=== PATIENT | female | born 1940 | race Asian ===

== ENCOUNTER → 2017-06-13 | Outpatient (CLI) | payer MEDICARE, OTHER ==
[2017-06-13 08:35] LABS: Basophils # (auto) 0 uL; Basophils % (auto) 0.9 % (0.0-2.0); Eosinophils # (auto) 0.1 uL; Eosinophils % (auto) 2.2 % (0.0-7.0); Hemoglobin 15.2 g/dL (12.2-16.2); Lymphocytes # (auto) 1.9 uL; Lymphocytes % (auto) 43.8 % (10.0-50.0); Mean Corpuscular Hemoglobin 30.1 pg (28.0-32.0); Mean Corpuscular Volume 91.2 fL (80.0-100.0); Monocytes # (auto) 0.3 uL; Monocytes % (auto) 7.4 % (0.0-12.0); Neutrophils # (auto) 1.9 uL; Neutrophils % (auto) 45.7 % (37.0-80.0); Nucleated Red Blood Cells % 0.1 %; Platelet Count (auto) 221 10^3/uL (140-450); Red Blood Cells 5.05 10^6/uL (4.0-5.20); White Blood Cell 4.2 10^3/uL (4.4-10.8)
[2017-06-13 12:43] LABS: Albumin 3.8 g/dL (3.4-5.0); BUN/Creatinine Ratio 33.3; Bilirubin, Total 0.6 mg/dL (0.2-1.0); CRP High Sensitivity 0.21 mg/dL (< 0.3); Calcium 8.6 mg/dL (8.5-10.1); Potassium 4.3 mmol/L (3.5-5.1); Total Protein 7.8 g/dL (6.4-8.2)
== END | disposition home or self-care (01) ==
LOC: LAB 07:28
PROVIDERS: ATTEND Internal Medicine
DX: I10 Essential (primary) hypertension (principal); E11.9 Type 2 diabetes mellitus without complications; M19.90 Unspecified osteoarthritis, unspecified site
CPT/HCPCS: 36415; 80053; 83036; 85025; 86038; 86141; 86200; 86431

== ENCOUNTER → 2017-08-16 | Outpatient (CLI) | payer MEDICARE, OTHER ==
[2017-08-16 10:56] LABS: Basophils # (auto) 0 uL; Basophils % (auto) 0.5 % (0.0-2.0); Eosinophils # (auto) 0.1 uL; Eosinophils % (auto) 1.2 % (0.0-7.0); Hematocrit 46.3 % (36.0-46.0); Hemoglobin 14.9 g/dL (12.2-16.2); Lymphocytes % (auto) 42.2 % (10.0-50.0); Mean Corpuscular Hgb Conc. 32.1 g/dL (32.0-36.0); Mean Corpuscular Volume 90.4 fL (80.0-100.0); Monocytes # (auto) 0.4 uL; Monocytes % (auto) 9.1 % (0.0-12.0); Neutrophils # (auto) 2.2 uL; Nucleated Red Blood Cells % 0.1 %; Platelet Count (auto) 231 10^3/uL (140-450); Red Blood Cells 5.12 10^6/uL (4.0-5.20); Red Cell Distribution Width 15.3 % (11.8-14.3); White Blood Cell 4.7 10^3/uL (4.4-10.8)
[2017-08-16 11:14] LABS: Albumin 3.7 g/dL (3.4-5.0); Calcium 8.6 mg/dL (8.5-10.1); Potassium 4.3 mmol/L (3.5-5.1)
[2017-08-16 11:19] LABS: Bilirubin, Total 0.3 mg/dL (0.2-1.0); Total Protein 7.8 g/dL (6.4-8.2)
== END | disposition home or self-care (01) ==
LOC: LAB 09:58
PROVIDERS: ATTEND Internal Medicine
DX: I10 Essential (primary) hypertension (principal); E11.9 Type 2 diabetes mellitus without complications; M06.9 Rheumatoid arthritis, unspecified; E78.00 Pure hypercholesterolemia, unspecified
CPT/HCPCS: 36415; 80053; 85025; 85652

== ENCOUNTER → 2017-11-05 | Outpatient (CLI) | payer MEDICARE, OTHER, MEDICAID ==
[2017-11-05 12:28] LABS: Urine Bacteria NONE SEEN /hpf (None Seen); Urine Blood TRACE /uL (Negative); Urine WBC 1 /hpf (0 - 5)
[2017-11-05 12:34] LABS: Basophils # (auto) 0 uL; Basophils % (auto) 0.4 % (0.0-2.0); Eosinophils # (auto) 0.1 uL; Eosinophils % (auto) 1.6 % (0.0-7.0); Hematocrit 41.7 % (36.0-46.0); Hemoglobin 13.8 g/dL (12.2-16.2); Lymphocytes # (auto) 1.5 uL; Lymphocytes % (auto) 36.9 % (10.0-50.0); Mean Corpuscular Hemoglobin 30.1 pg (28.0-32.0); Mean Corpuscular Hgb Conc. 33.1 g/dL (32.0-36.0); Mean Corpuscular Volume 90.9 fL (80.0-100.0); Monocytes # (auto) 0.4 uL; Monocytes % (auto) 9.7 % (0.0-12.0); Neutrophils % (auto) 51.4 % (37.0-80.0); Nucleated Red Blood Cells % 0.2 %; Platelet Count (auto) 230 10^3/uL (140-450); Red Blood Cells 4.59 10^6/uL (4.0-5.20); Red Cell Distribution Width 16.9 % (11.8-14.3)
[2017-11-05 13:02] LABS: Albumin 3.6 g/dL (3.4-5.0); BUN/Creatinine Ratio 20.2; Bilirubin, Total 0.7 mg/dL (0.2-1.0); CRP High Sensitivity 0.27 mg/dL (< 0.3); Calcium 8.6 mg/dL (8.5-10.1); Potassium 4.4 mmol/L (3.5-5.1); Total Protein 7.3 g/dL (6.4-8.2)
== END | disposition home or self-care (01) ==
LOC: LAB 11:28
PROVIDERS: ATTEND Internal Medicine
DX: E11.9 Type 2 diabetes mellitus without complications (principal); M06.9 Rheumatoid arthritis, unspecified; I10 Essential (primary) hypertension
CPT/HCPCS: 36415; 80053; 81001; 82043; 83036; 84439; 84443; 85025; 86141

== ENCOUNTER → 2018-01-17 | Outpatient (CLI) | payer MEDICARE, OTHER, MEDICAID ==
[2018-01-17 14:14] LABS: Basophils # (auto) 0 uL; Basophils % (auto) 0.4 % (0.0-2.0); Eosinophils # (auto) 0.1 uL; Eosinophils % (auto) 1.8 % (0.0-7.0); Hematocrit 42.9 % (36.0-46.0); Hemoglobin 14.1 g/dL (12.2-16.2); Lymphocytes # (auto) 1.8 uL; Lymphocytes % (auto) 38.7 % (10.0-50.0); Mean Corpuscular Hemoglobin 30.4 pg (28.0-32.0); Mean Corpuscular Hgb Conc. 32.7 g/dL (32.0-36.0); Monocytes # (auto) 0.5 uL; Monocytes % (auto) 10.1 % (0.0-12.0); Neutrophils # (auto) 2.3 uL; Platelet Count (auto) 228 10^3/uL (140-450); Red Blood Cells 4.62 10^6/uL (4.0-5.20); Red Cell Distribution Width 16.3 % (11.8-14.3); White Blood Cell 4.7 10^3/uL (4.4-10.8)
[2018-01-17 14:32] LABS: Albumin 3.8 g/dL (3.4-5.0); Calcium 9.2 mg/dL (8.5-10.1); Potassium 4.4 mmol/L (3.5-5.1)
[2018-01-17 14:37] LABS: BUN/Creatinine Ratio 25.7; Bilirubin, Total 0.4 mg/dL (0.2-1.0); Total Protein 7.6 g/dL (6.4-8.2)
== END | disposition home or self-care (01) ==
LOC: LAB 13:40
PROVIDERS: ATTEND Internal Medicine
DX: M06.9 Rheumatoid arthritis, unspecified (principal); K12.1 Other forms of stomatitis
CPT/HCPCS: 36415; 80053; 85025

== ENCOUNTER → 2018-02-06 | Outpatient (CLI) | payer MEDICARE, OTHER ==
[2018-02-06 12:03] LABS: Basophils # (auto) 0 uL; Basophils % (auto) 0.6 % (0.0-2.0); Eosinophils # (auto) 0 uL; Hematocrit 46.7 % (36.0-46.0); Hemoglobin 15.1 g/dL (12.2-16.2); Lymphocytes # (auto) 1.8 uL; Lymphocytes % (auto) 41.2 % (10.0-50.0); Mean Corpuscular Hemoglobin 30.2 pg (28.0-32.0); Mean Corpuscular Hgb Conc. 32.4 g/dL (32.0-36.0); Mean Corpuscular Volume 93.1 fL (80.0-100.0); Monocytes # (auto) 0.3 uL; Monocytes % (auto) 6.7 % (0.0-12.0); Neutrophils # (auto) 2.3 uL; Neutrophils % (auto) 50.5 % (37.0-80.0); Nucleated Red Blood Cells % 0.1 %; Platelet Count (auto) 233 10^3/uL (140-450); Red Blood Cells 5.01 10^6/uL (4.0-5.20); Red Cell Distribution Width 15.5 % (11.8-14.3); White Blood Cell 4.5 10^3/uL (4.4-10.8)
[2018-02-06 12:27] LABS: Albumin 3.6 g/dL (3.4-5.0)
== END | disposition home or self-care (01) ==
LOC: LAB 10:58
PROVIDERS: ATTEND Internal Medicine Rheumatology
DX: M06.9 Rheumatoid arthritis, unspecified (principal)
CPT/HCPCS: 36415; 82040; 82565; 84450; 84460; 85025

== ENCOUNTER → 2018-06-04 | Outpatient (CLI) | payer MEDICARE, OTHER ==
[2018-06-04 10:03] LABS: Urine Bacteria NONE SEEN /hpf (None Seen); Urine Blood TRACE /uL (Negative); Urine Specific Gravity 1.017 (1.001-1.035); Urine WBC 1 /hpf (0 - 5)
[2018-06-04 10:04] LABS: Basophils # (auto) 0 uL; Basophils % (auto) 0.7 % (0.0-2.0); Eosinophils # (auto) 0.1 uL; Hematocrit 46.3 % (36.0-46.0); Hemoglobin 15.2 g/dL (12.2-16.2); Lymphocytes # (auto) 1.5 uL; Lymphocytes % (auto) 39.8 % (10.0-50.0); Mean Corpuscular Hemoglobin 30.7 pg (28.0-32.0); Mean Corpuscular Hgb Conc. 32.8 g/dL (32.0-36.0); Mean Corpuscular Volume 93.6 fL (80.0-100.0); Monocytes # (auto) 0.3 uL; Neutrophils # (auto) 1.8 uL; Neutrophils % (auto) 49.5 % (37.0-80.0); Platelet Count (auto) 232 10^3/uL (140-450); Red Blood Cells 4.94 10^6/uL (4.0-5.20); Red Cell Distribution Width 17.2 % (11.8-14.3); White Blood Cell 3.7 10^3/uL (4.4-10.8)
[2018-06-04 10:27] LABS: Calcium 9.2 mg/dL (8.5-10.1); Potassium 4.4 mmol/L (3.5-5.1)
[2018-06-04 10:32] LABS: BUN/Creatinine Ratio 18.7; Bilirubin, Total 0.7 mg/dL (0.2-1.0); CRP High Sensitivity 0.26 mg/dL (< 0.3); Total Protein 8.1 g/dL (6.4-8.2)
[2018-06-04 14:03] LABS: Free T4 (Free Thyroxine) 1.28 ng/dL (0.89-1.76)
== END | disposition home or self-care (01) ==
LOC: LAB 09:20
PROVIDERS: ATTEND Internal Medicine
DX: E11.9 Type 2 diabetes mellitus without complications (principal); M06.9 Rheumatoid arthritis, unspecified; I25.10 Atherosclerotic heart disease of native coronary artery without angina pectoris
CPT/HCPCS: 36415; 80053; 80061; 81001; 82043; 82607; 83036; 84439; 84443; 85025; 85652; 86141

== ENCOUNTER → 2018-09-04 | Outpatient (CLI) | payer MEDICARE, OTHER | END | disposition home or self-care (01) | LOC: XY 09:37 | PROVIDERS: ATTEND Internal Medicine | DX: I27.20 Pulmonary hypertension, unspecified (principal); I51.7 Cardiomegaly | CPT/HCPCS: 78582; A9540; A9558 ==

== ENCOUNTER → 2018-09-04 | Outpatient (CLI) | payer MEDICARE, OTHER ==
[2018-09-04 09:52] LABS: Basophils # (auto) 0 uL; Basophils % (auto) 0.6 % (0.0-2.0); Eosinophils # (auto) 0.1 uL; Eosinophils % (auto) 2.9 % (0.0-7.0); Hematocrit 43.3 % (36.0-46.0); Hemoglobin 14.1 g/dL (12.2-16.2); Lymphocytes # (auto) 1.2 uL; Lymphocytes % (auto) 32.5 % (10.0-50.0); Mean Corpuscular Hemoglobin 30.7 pg (28.0-32.0); Mean Corpuscular Hgb Conc. 32.6 g/dL (32.0-36.0); Mean Corpuscular Volume 94.1 fL (80.0-100.0); Monocytes # (auto) 0.3 uL; Monocytes % (auto) 7.7 % (0.0-12.0); Neutrophils # (auto) 2.1 uL; Neutrophils % (auto) 56.3 % (37.0-80.0); Platelet Count (auto) 222 10^3/uL (140-450); Red Cell Distribution Width 17.2 % (11.8-14.3); White Blood Cell 3.7 10^3/uL (4.4-10.8)
[2018-09-04 10:07] LABS: Albumin 3.8 g/dL (3.4-5.0); BUN/Creatinine Ratio 29.3; Calcium 8.6 mg/dL (8.5-10.1); Potassium 4.3 mmol/L (3.5-5.1)
[2018-09-04 10:09] LABS: Bilirubin, Total 0.6 mg/dL (0.2-1.0); Total Protein 7.6 g/dL (6.4-8.2)
== END | disposition home or self-care (01) ==
LOC: LAB 09:16
PROVIDERS: ATTEND Internal Medicine
DX: E11.9 Type 2 diabetes mellitus without complications (principal); I26.99 Other pulmonary embolism without acute cor pulmonale
CPT/HCPCS: 36415; 80053; 83036; 85025; 85652

== ENCOUNTER → 2018-12-18 | Outpatient (CLI) | payer MEDICARE, OTHER, MEDICAID ==
[2018-12-18 13:45] LABS: Basophils # (auto) 0.1 uL; Basophils % (auto) 1.5 % (0.0-2.0); Eosinophils # (auto) 0.1 uL; Eosinophils % (auto) 1.2 % (0.0-7.0); Hemoglobin 13.4 g/dL (12.2-16.2); Lymphocytes # (auto) 1.6 uL; Lymphocytes % (auto) 32.1 % (10.0-50.0); Mean Corpuscular Hemoglobin 30.7 pg (28.0-32.0); Mean Corpuscular Hgb Conc. 32.6 g/dL (32.0-36.0); Mean Corpuscular Volume 93.9 fL (80.0-100.0); Monocytes # (auto) 0.4 uL; Neutrophils # (auto) 2.9 uL; Neutrophils % (auto) 57.2 % (37.0-80.0); Nucleated Red Blood Cells % 0.1 %; Platelet Count (auto) 229 10^3/uL (140-450); Red Blood Cells 4.36 10^6/uL (4.0-5.20); Red Cell Distribution Width 16.2 % (11.8-14.3); White Blood Cell 5.1 10^3/uL (4.4-10.8)
[2018-12-18 14:32] LABS: Albumin 3.8 g/dL (3.4-5.0); Calcium 8.7 mg/dL (8.5-10.1); Potassium 4.5 mmol/L (3.5-5.1)
[2018-12-18 14:36] LABS: Bilirubin, Total 0.5 mg/dL (0.2-1.0); Total Protein 7.5 g/dL (6.4-8.2)
== END | disposition home or self-care (01) ==
LOC: LAB 13:29
PROVIDERS: ATTEND Internal Medicine
DX: M06.9 Rheumatoid arthritis, unspecified (principal); E11.9 Type 2 diabetes mellitus without complications; I10 Essential (primary) hypertension
CPT/HCPCS: 36415; 80053; 83036; 85025; 85652

== ENCOUNTER → 2019-01-14 | Outpatient (CLI) | payer MEDICARE, OTHER ==
[2019-01-14 15:07] LABS: Basophils # (auto) 0 uL; Basophils % (auto) 0.4 % (0.0-2.0); Eosinophils # (auto) 0.1 uL; Eosinophils % (auto) 1.6 % (0.0-7.0); Hematocrit 41.3 % (36.0-46.0); Hemoglobin 13.5 g/dL (12.2-16.2); Lymphocytes # (auto) 1.5 uL; Lymphocytes % (auto) 27.1 % (10.0-50.0); Mean Corpuscular Hemoglobin 31.1 pg (28.0-32.0); Mean Corpuscular Hgb Conc. 32.6 g/dL (32.0-36.0); Mean Corpuscular Volume 95.5 fL (80.0-100.0); Monocytes # (auto) 0.4 uL; Monocytes % (auto) 7.4 % (0.0-12.0); Neutrophils # (auto) 3.6 uL; Neutrophils % (auto) 63.5 % (37.0-80.0); Platelet Count (auto) 218 10^3/uL (140-450); Red Blood Cells 4.33 10^6/uL (4.0-5.20); Red Cell Distribution Width 16.6 % (11.8-14.3); White Blood Cell 5.7 10^3/uL (4.4-10.8)
[2019-01-14 16:07] LABS: Albumin 3.8 g/dL (3.4-5.0); Calcium 8.5 mg/dL (8.5-10.1); Potassium 4.2 mmol/L (3.5-5.1)
[2019-01-14 16:10] LABS: BUN/Creatinine Ratio 24.1; Bilirubin, Total 0.5 mg/dL (0.2-1.0); Total Protein 7.5 g/dL (6.4-8.2)
== END | disposition home or self-care (01) ==
LOC: LAB 14:46
PROVIDERS: ATTEND Internal Medicine
DX: I10 Essential (primary) hypertension (principal); M06.9 Rheumatoid arthritis, unspecified; E11.9 Type 2 diabetes mellitus without complications; Z79.899 Other long term (current) drug therapy
CPT/HCPCS: 36415; 80053; 83036; 85025; 87086

== ENCOUNTER → 2019-05-26 | Outpatient (CLI) | payer MEDICARE, OTHER ==
[2019-05-26 12:49] LABS: Basophils # (auto) 0 10 ^3/uL (0-0.2); Basophils % (auto) 0.3 % (0.0-2.0); Eosinophils # (auto) 0.1 10 ^3/uL (0-0.8); Eosinophils % (auto) 1.5 % (0.0-7.0); Hemoglobin 14.6 g/dL (12.2-16.2); Lymphocytes # (auto) 1.7 10 ^3/uL (0.4-5.4); Lymphocytes % (auto) 40.4 % (10.0-50.0); Mean Corpuscular Hemoglobin 29.7 pg (28.0-32.0); Mean Corpuscular Hgb Conc. 33.3 g/dL (32.0-36.0); Mean Corpuscular Volume 89.2 fL (80.0-100.0); Monocytes # (auto) 0.3 10 ^3/uL (0-1.3); Monocytes % (auto) 7.3 % (0.0-12.0); Neutrophils # (auto) 2.2 10 ^3/uL (1.6-8.6); Neutrophils % (auto) 50.5 % (37.0-80.0); Nucleated Red Blood Cells % 0.1 %; Platelet Count (auto) 234 10^3/uL (140-450); Red Blood Cells 4.94 10^6/uL (4.0-5.20); Red Cell Distribution Width 16.1 % (11.8-14.3); White Blood Cell 4.3 10^3/uL (4.4-10.8)
[2019-05-26 12:55] LABS: Urine Bacteria FEW /hpf (None Seen); Urine Blood TRACE /uL (Negative); Urine Specific Gravity 1.011 (1.001-1.035); Urine WBC 1 /hpf (0 - 5)
[2019-05-26 13:22] LABS: Potassium 4.5 mmol/L (3.5-5.1)
[2019-05-26 13:30] LABS: Albumin 3.9 g/dL (3.4-5.0); BUN/Creatinine Ratio 16.9; Bilirubin, Total 0.6 mg/dL (0.2-1.0); CRP High Sensitivity 0.24 mg/dL (< 0.3); Calcium 9.4 mg/dL (8.5-10.1); Total Protein 8.2 g/dL (6.4-8.2)
[2019-05-26 13:32] LABS: Free T4 (Free Thyroxine) 1.35 ng/dL (0.89-1.76)
== END | disposition home or self-care (01) ==
LOC: LAB 10:46
PROVIDERS: ATTEND Internal Medicine
DX: Z51.81 Encounter for therapeutic drug level monitoring (principal); I25.10 Atherosclerotic heart disease of native coronary artery without angina pectoris; I10 Essential (primary) hypertension; E11.9 Type 2 diabetes mellitus without complications
CPT/HCPCS: 36415; 80053; 80061; 81001; 82043; 82607; 83036; 84439; 84443; 85025; 85652; 86141

== ENCOUNTER → 2019-09-23 | Outpatient (CLI) | payer MEDICARE, OTHER ==
[2019-09-23 11:28] LABS: Basophils # (auto) 0 10 ^3/uL (0-0.2); Basophils % (auto) 0.5 % (0.0-2.0); Eosinophils # (auto) 0.1 10 ^3/uL (0-0.8); Eosinophils % (auto) 1.8 % (0.0-7.0); Hematocrit 42.9 % (36.0-46.0); Lymphocytes # (auto) 1.3 10 ^3/uL (0.4-5.4); Lymphocytes % (auto) 28.2 % (10.0-50.0); Mean Corpuscular Hgb Conc. 32.5 g/dL (32.0-36.0); Mean Corpuscular Volume 95.3 fL (80.0-100.0); Monocytes # (auto) 0.3 10 ^3/uL (0-1.3); Monocytes % (auto) 7.1 % (0.0-12.0); Neutrophils # (auto) 2.8 10 ^3/uL (1.6-8.6); Neutrophils % (auto) 62.4 % (37.0-80.0); Platelet Count (auto) 213 10^3/uL (140-450); Red Cell Distribution Width 17.1 % (11.8-14.3); White Blood Cell 4.4 10^3/uL (4.4-10.8)
[2019-09-23 11:50] LABS: Albumin 3.7 g/dL (3.4-5.0); Calcium 9.1 mg/dL (8.5-10.1); Potassium 4.2 mmol/L (3.5-5.1)
[2019-09-23 11:55] LABS: BUN/Creatinine Ratio 21.6; Bilirubin, Total 0.5 mg/dL (0.2-1.0); Total Protein 7.3 g/dL (6.4-8.2)
== END | disposition home or self-care (01) ==
LOC: LAB 11:06
PROVIDERS: ATTEND Internal Medicine
DX: E11.9 Type 2 diabetes mellitus without complications (principal); M06.9 Rheumatoid arthritis, unspecified
CPT/HCPCS: 36415; 80053; 83036; 85025; 85652

== ENCOUNTER → 2019-12-30 | Outpatient (CLI) | payer MEDICARE, OTHER, MEDICAID ==
[2019-12-30 11:27] LABS: Basophils # (auto) 0 10 ^3/uL (0-0.2); Basophils % (auto) 0.4 % (0.0-2.0); Eosinophils # (auto) 0.1 10 ^3/uL (0-0.8); Eosinophils % (auto) 1.1 % (0.0-7.0); Hematocrit 43.4 % (36.0-46.0); Lymphocytes # (auto) 1.8 10 ^3/uL (0.4-5.4); Mean Corpuscular Hemoglobin 30.3 pg (28.0-32.0); Mean Corpuscular Hgb Conc. 32.4 g/dL (32.0-36.0); Mean Corpuscular Volume 93.5 fL (80.0-100.0); Monocytes # (auto) 0.6 10 ^3/uL (0-1.3); Monocytes % (auto) 9.6 % (0.0-12.0); Neutrophils # (auto) 3.4 10 ^3/uL (1.6-8.6); Neutrophils % (auto) 57.9 % (37.0-80.0); Nucleated Red Blood Cells % 0.1 %; Platelet Count (auto) 253 10^3/uL (140-450); Red Blood Cells 4.64 10^6/uL (4.0-5.20); Red Cell Distribution Width 16.3 % (11.8-14.3); White Blood Cell 5.9 10^3/uL (4.4-10.8)
[2019-12-30 12:04] LABS: Albumin 3.7 g/dL (3.4-5.0); Calcium 8.8 mg/dL (8.5-10.1); Potassium 4.3 mmol/L (3.5-5.1)
[2019-12-30 12:07] LABS: BUN/Creatinine Ratio 28.8; Bilirubin, Total 0.4 mg/dL (0.2-1.0); CRP High Sensitivity 0.16 mg/dL (< 0.3); Total Protein 7.2 g/dL (6.4-8.2)
== END | disposition home or self-care (01) ==
LOC: LAB 11:06
PROVIDERS: ATTEND Internal Medicine
DX: E11.9 Type 2 diabetes mellitus without complications (principal); M06.9 Rheumatoid arthritis, unspecified
CPT/HCPCS: 36415; 80053; 83036; 85025; 85652; 86141

== ENCOUNTER 2020-02-15 09:40 | Emergency (ER) | payer MEDICARE, OTHER ==
[~2020-02-15] VITALS: Ht 157.5 cm; Wt 68.0 kg
[2020-02-15] MEDS ORDERED: ACETAMINOPHEN 650 mg PER 20.3 mL UD PO ONE (10:00)
[2020-02-15 12:51] VITALS: BP 124/58
== END 2020-02-15 14:14 | disposition home or self-care (01) ==
LOC: ER 09:40
DX: S09.90XA Unspecified injury of head, initial encounter (principal); T14.8XXA Other injury of unspecified body region, initial encounter; J18.9 Pneumonia, unspecified organism; E11.9 Type 2 diabetes mellitus without complications; I10 Essential (primary) hypertension; X58.XXXA Exposure to other specified factors, initial encounter; Y93.89 Activity, other specified; Y92.89 Other specified places as the place of occurrence of the external cause; Y99.8 Other external cause status
CPT/HCPCS: 70450; 70486; 71046; 72170

== ENCOUNTER 2020-02-17 10:55 | Inpatient (IN) | payer MEDICARE, OTHER ==
[~2020-02-17] VITALS: Ht 157.5 cm; Wt 70.4 kg
[2020-02-17] MEDS ORDERED: ENOXAPARIN SOD 100 MG/1 ML SYRINGE SC ONE (11:30)
[2020-02-17] MEDS ORDERED: methylPREDNISolone SOD SUCC 125 MG/2 ML VL IV ONE (11:30)
[2020-02-17] MEDS ORDERED: AZITHROMYCIN 500MG/ 250ML 250 ML IV ONE (11:30)
[2020-02-17 12:03] LABS: Basophils # (auto) 0 10 ^3/uL (0-0.2); Basophils % (auto) 0.1 % (0.0-2.0); Eosinophils # (auto) 0 10 ^3/uL (0-0.8); Hematocrit 44.9 % (36.0-46.0); Hemoglobin 14.8 g/dL (12.2-16.2); Lymphocytes # (auto) 0.5 10 ^3/uL (0.4-5.4); Lymphocytes % (auto) 10.3 % (10.0-50.0); Mean Corpuscular Hemoglobin 30.2 pg (28.0-32.0); Mean Corpuscular Volume 91.6 fL (80.0-100.0); Monocytes # (auto) 0.5 10 ^3/uL (0-1.3); Monocytes % (auto) 11.3 % (0.0-12.0); Neutrophils # (auto) 3.5 10 ^3/uL (1.6-8.6); Neutrophils % (auto) 78.3 % (37.0-80.0); Nucleated Red Blood Cells % 0.5 %; Platelet Count (auto) 262 10^3/uL (140-450); Red Cell Distribution Width 16.8 % (11.8-14.3); White Blood Cell 4.5 10^3/uL (4.4-10.8)
[2020-02-17 12:25] LABS: Anion Gap 13 (5-15); Blood Urea Nitrogen 42 mg/dL (7-18); Calcium 8.7 mg/dL (8.5-10.1); Carbon Dioxide 21 mmol/L (21-32); Chloride 96 mmol/L (98-107); Glucose 107 mg/dL (74-106); Potassium 4.4 mmol/L (3.5-5.1); Sodium 130 mmol/L (136-145)
[2020-02-17 12:26] LABS: Lactic Acid w/Reflex 2.1 mmol/L (0.4-2.0)
[2020-02-17 12:35] LABS: Alanine Aminotransferase 32 U/L (13-56); Alkaline Phosphatase 62 U/L (45-117); Aspartate Aminotransferase 73 U/L (15-37); BUN/Creatinine Ratio 30.7; Bilirubin, Total 0.5 mg/dL (0.2-1.0); GFR African American 48 mL/min; GFR Non-African American 40 mL/min; Lactate Dehydrogenase 638 U/L (84-246); Total Protein 7.8 g/dL (6.4-8.2)
[2020-02-17] MEDS ORDERED: DEXTROSE (50%) 50ML SYRG IV PRN (13:00)
[2020-02-17] MEDS ORDERED: MORPHINE SULF INJ 2 MG/ML SYRINGE 1ML IV PRN (13:00)
[2020-02-17] MEDS ORDERED: SODIUM CHLORIDE 0.9% 1,000 ML IV SCH (13:00)
[2020-02-17] MEDS ORDERED: ACETAMINOPHEN 500 MG TAB PO PRN (13:00)
[2020-02-17] MEDS ORDERED: NITROGLYCERIN 0.4 MG SL TAB SL PRN (13:00)
[2020-02-17] MEDS: ALBUTEROL SULF HFA 90MCG INH 200DOSE IN SCH ×2 (13:30→22:00)
[2020-02-17] MEDS ORDERED: CLIN300C8 PO (14:17)
[2020-02-17] MEDS ORDERED: LEVO-28 PO (14:17)
[2020-02-17] MEDS ORDERED: ASPI81TA92 PO (14:17)
[2020-02-17] MEDS ORDERED: ZINC220C8 PO (14:17)
[2020-02-17] MEDS ORDERED: METO-169 PO (14:17)
[2020-02-17] MEDS ORDERED: METH2.5T PO (14:17)
[2020-02-17] MEDS ORDERED: METF-370 PO (14:17)
[2020-02-17] MEDS ORDERED: SODIUM CHLORIDE 0.9% 1,000 ML IV ONE (17:00)
[2020-02-17] MEDS: ACCU-CHEK COMFORT CURVE STRIP VI SCH ×2 (17:27→22:05)
[2020-02-17] MEDS: InsuLIN REG 1unit/0.01ml Soln (100units/ml) SC SCH ×2 (17:28→22:28)
[2020-02-17 21:27] LABS: Urine Bacteria MANY /hpf (None Seen); Urine Blood Negative /uL (Negative); Urine Hyaline Cast FEW /lpf (0 - 2); Urine Mucus FEW (None Seen); Urine WBC 2 /hpf (0 - 5)
[2020-02-17] MEDS: BUDESONIDE (INHALATION) 180 MCG IH IN SCH (22:00)
[2020-02-17] MEDS: DOXYCYCLINE 100MG/250ML 250 ML IV SCH (22:05)
[2020-02-18 02:25] VITALS: BP 99/49
[2020-02-18] MEDS: ACCU-CHEK COMFORT CURVE STRIP VI SCH ×4 (06:46→22:00)
[2020-02-18] MEDS: InsuLIN REG 1unit/0.01ml Soln (100units/ml) SC SCH ×4 (06:46→22:00)
[2020-02-18 07:37] LABS: Basophils # (auto) 0 10 ^3/uL (0-0.2); Basophils % (auto) 0.1 % (0.0-2.0); Eosinophils # (auto) 0 10 ^3/uL (0-0.8); Hematocrit 45.3 % (36.0-46.0); Hemoglobin 14.9 g/dL (12.2-16.2); Lymphocytes # (auto) 0.5 10 ^3/uL (0.4-5.4); Lymphocytes % (auto) 11.1 % (10.0-50.0); Mean Corpuscular Hemoglobin 29.9 pg (28.0-32.0); Mean Corpuscular Hgb Conc. 32.9 g/dL (32.0-36.0); Mean Corpuscular Volume 90.7 fL (80.0-100.0); Monocytes # (auto) 0.4 10 ^3/uL (0-1.3); Monocytes % (auto) 8.8 % (0.0-12.0); Neutrophils # (auto) 3.9 10 ^3/uL (1.6-8.6); Nucleated Red Blood Cells % 0.1 %; Platelet Count (auto) 261 10^3/uL (140-450); Red Blood Cells 4.99 10^6/uL (4.0-5.20); Red Cell Distribution Width 16.2 % (11.8-14.3); White Blood Cell 4.9 10^3/uL (4.4-10.8)
[2020-02-18 07:48] LABS: Albumin 2.8 g/dL (3.4-5.0); BUN/Creatinine Ratio 40.8; Calcium 8.8 mg/dL (8.5-10.1); Potassium 4.1 mmol/L (3.5-5.1)
[2020-02-18 07:50] LABS: Bilirubin, Total 0.4 mg/dL (0.2-1.0); Total Protein 7.4 g/dL (6.4-8.2)
[2020-02-18] MEDS ORDERED: REMDESIVIR PER PHARMACY IV SCH (08:15)
[2020-02-18] MEDS: BUDESONIDE (INHALATION) 180 MCG IH IN SCH ×2 (08:23→22:00)
[2020-02-18] MEDS: ALBUTEROL SULF HFA 90MCG INH 200DOSE IN SCH ×3 (08:24→22:00)
[2020-02-18] MEDS: DexAMETHasone SOD PHOS 10MG/1ML VIAL INJ IV SCH (09:41)
[2020-02-18] MEDS: DOXYCYCLINE 100MG/250ML 250 ML IV SCH ×2 (09:41→22:30)
[2020-02-18] MEDS: CHOLECALCIFEROL (VITD3) 2,000 UNIT CAP PO SCH (09:42)
[2020-02-18] MEDS: ASCORBIC ACID 1,000 MG TAB PO SCH (09:42)
[2020-02-18] MEDS: ZINC SULFATE 220mg CAP or TAB PO SCH (09:42)
[2020-02-18] MEDS ORDERED: ENOXAPARIN SOD 30 MG/0.3 ML SYRINGE SC SCH (10:00)
[2020-02-18 16:40] VITALS: BP 95/53
[2020-02-18 16:55] VITALS: BP 123/65
[2020-02-18] MEDS ORDERED: REMDESIVIR 200 MG in NS 210ml LOADING DOSE ADULT IV ONE (17:00)
[2020-02-18 18:25] VITALS: BP 115/56
[2020-02-18] MEDS: ENOXAPARIN SOD 60 MG/0.6 ML SYRINGE SC SCH (22:30)
[2020-02-19] MEDS: ALBUTEROL SULF HFA 90MCG INH 200DOSE IN SCH ×3 (06:00→22:00)
[2020-02-19] MEDS: InsuLIN REG 1unit/0.01ml Soln (100units/ml) SC SCH ×4 (07:00→21:27)
[2020-02-19] MEDS: ACCU-CHEK COMFORT CURVE STRIP VI SCH ×4 (07:00→21:26)
[2020-02-19] MEDS: BUDESONIDE (INHALATION) 180 MCG IH IN SCH ×2 (07:31→22:00)
[2020-02-19] MEDS: DexAMETHasone SOD PHOS 10MG/1ML VIAL INJ IV SCH (08:48)
[2020-02-19] MEDS: ZINC SULFATE 220mg CAP or TAB PO SCH (08:48)
[2020-02-19] MEDS: ASCORBIC ACID 1,000 MG TAB PO SCH (08:48)
[2020-02-19] MEDS: DOXYCYCLINE 100MG/250ML 250 ML IV SCH ×2 (08:48→21:26)
[2020-02-19] MEDS: ENOXAPARIN SOD 60 MG/0.6 ML SYRINGE SC SCH ×2 (08:49→21:26)
[2020-02-19] MEDS: CHOLECALCIFEROL (VITD3) 2,000 UNIT CAP PO SCH (08:49)
[2020-02-19] MEDS: ENSURE CLEAR Mixed Berry 8oz Carton PO SCH ×2 (11:49→18:00)
--- NOTE | 2020-02-19 16:11 | NUR ---
Nutrition Assessment Notes Please refer to link for full assessment notes. Est Energy needs: 3405-9934 kcals (20-23 kcal/kgBW) Est Protein needs: 63-69 gms/day (1.0-1.1 gm/kgBW) Will continue to monitor and reassess prn. Addendum: 02/19/20 at [address] Amended: Links added.
[2020-02-19] MEDS: REMDESIVIR 100mg in NS 230ml DAILYx4DAYS (NO VENT) IV SCH (16:43)
[2020-02-19] MEDS: SODIUM CHLORIDE 0.9% 1,000 ML IV SCH (20:31)
[2020-02-20 06:42] LABS: Basophils # (auto) 0 10 ^3/uL (0-0.2); Eosinophils # (auto) 0 10 ^3/uL (0-0.8); Hematocrit 45.3 % (36.0-46.0); Hemoglobin 14.8 g/dL (12.2-16.2); Lymphocytes # (auto) 0.5 10 ^3/uL (0.4-5.4); Lymphocytes % (auto) 5.4 % (10.0-50.0); Mean Corpuscular Hemoglobin 29.8 pg (28.0-32.0); Mean Corpuscular Hgb Conc. 32.6 g/dL (32.0-36.0); Mean Corpuscular Volume 91.3 fL (80.0-100.0); Monocytes # (auto) 0.6 10 ^3/uL (0-1.3); Monocytes % (auto) 6.8 % (0.0-12.0); Neutrophils # (auto) 7.7 10 ^3/uL (1.6-8.6); Neutrophils % (auto) 87.8 % (37.0-80.0); Nucleated Red Blood Cells % 0.2 %; Platelet Count (auto) 330 10^3/uL (140-450); Red Blood Cells 4.96 10^6/uL (4.0-5.20); White Blood Cell 8.8 10^3/uL (4.4-10.8)
[2020-02-20] MEDS: ACCU-CHEK COMFORT CURVE STRIP VI SCH ×4 (06:52→21:48)
[2020-02-20] MEDS: InsuLIN REG 1unit/0.01ml Soln (100units/ml) SC SCH ×4 (06:53→21:51)
[2020-02-20 07:06] LABS: Calcium 8.7 mg/dL (8.5-10.1); Potassium 3.9 mmol/L (3.5-5.1)
[2020-02-20 07:17] LABS: Albumin 2.4 g/dL (3.4-5.0); BUN/Creatinine Ratio 66.7; Bilirubin, Total 0.4 mg/dL (0.2-1.0); CRP High Sensitivity 10.4 mg/dL (< 0.3); Total Protein 6.4 g/dL (6.4-8.2)
[2020-02-20] MEDS: ENSURE CLEAR Mixed Berry 8oz Carton PO SCH ×3 (08:28→18:00)
[2020-02-20] MEDS: DexAMETHasone SOD PHOS 10MG/1ML VIAL INJ IV SCH (09:07)
[2020-02-20] MEDS: SODIUM CHLORIDE 0.9% 1,000 ML IV SCH (09:07)
[2020-02-20] MEDS: ZINC SULFATE 220mg CAP or TAB PO SCH (09:08)
[2020-02-20] MEDS: ASCORBIC ACID 1,000 MG TAB PO SCH (09:08)
[2020-02-20] MEDS: CHOLECALCIFEROL (VITD3) 2,000 UNIT CAP PO SCH (09:08)
[2020-02-20] MEDS: DOXYCYCLINE 100MG/250ML 250 ML IV SCH ×2 (09:08→21:48)
[2020-02-20] MEDS: ENOXAPARIN SOD 60 MG/0.6 ML SYRINGE SC SCH ×2 (09:08→21:49)
[2020-02-20] MEDS: BUDESONIDE (INHALATION) 180 MCG IH IN SCH ×2 (09:29→23:06)
[2020-02-20] MEDS: ALBUTEROL SULF HFA 90MCG INH 200DOSE IN SCH ×2 (14:34→23:06)
[2020-02-20] MEDS: REMDESIVIR 100mg in NS 230ml DAILYx4DAYS (NO VENT) IV SCH (16:57)
[2020-02-21 01:02] VITALS: BP 132/61
[2020-02-21 02:08] VITALS: BP 111/65
[2020-02-21 06:00] VITALS: BP 120/66
[2020-02-21] MEDS: BUDESONIDE (INHALATION) 180 MCG IH IN SCH ×2 (06:23→18:01)
[2020-02-21] MEDS: ALBUTEROL SULF HFA 90MCG INH 200DOSE IN SCH ×3 (06:23→18:01)
[2020-02-21] MEDS: ACCU-CHEK COMFORT CURVE STRIP VI SCH ×4 (06:31→22:00)
[2020-02-21] MEDS: InsuLIN REG 1unit/0.01ml Soln (100units/ml) SC SCH ×4 (06:32→22:00)
[2020-02-21] MEDS: ENSURE CLEAR Mixed Berry 8oz Carton PO SCH ×3 (08:11→18:00)
[2020-02-21 08:45] LABS: Albumin 2.4 g/dL (3.4-5.0); BUN/Creatinine Ratio 61.2; Calcium 8.5 mg/dL (8.5-10.1); Magnesium 2.7 mg/dL (1.6-2.6); Potassium 3.8 mmol/L (3.5-5.1)
[2020-02-21 08:56] LABS: Bilirubin, Total 0.5 mg/dL (0.2-1.0); CRP High Sensitivity 7.66 mg/dL (< 0.3); Total Protein 6.1 g/dL (6.4-8.2)
[2020-02-21 09:10] LABS: Basophils # (auto) 0 10 ^3/uL (0-0.2); Basophils % (auto) 0.1 % (0.0-2.0); Eosinophils # (auto) 0 10 ^3/uL (0-0.8); Hematocrit 44.3 % (36.0-46.0); Lymphocytes # (auto) 0.4 10 ^3/uL (0.4-5.4); Lymphocytes % (auto) 4.3 % (10.0-50.0); Mean Corpuscular Hgb Conc. 31.6 g/dL (32.0-36.0); Monocytes # (auto) 0.5 10 ^3/uL (0-1.3); Monocytes % (auto) 5.4 % (0.0-12.0); Neutrophils % (auto) 90.2 % (37.0-80.0); Nucleated Red Blood Cells % 0.1 %; Platelet Count (auto) 350 10^3/uL (140-450); Red Blood Cells 4.81 10^6/uL (4.0-5.20); Red Cell Distribution Width 17.2 % (11.8-14.3)
[2020-02-21] MEDS: ASCORBIC ACID 1,000 MG TAB PO SCH (10:31)
[2020-02-21] MEDS: ZINC SULFATE 220mg CAP or TAB PO SCH (10:31)
[2020-02-21] MEDS: DOXYCYCLINE 100MG/250ML 250 ML IV SCH ×2 (10:31→21:41)
[2020-02-21] MEDS: DexAMETHasone SOD PHOS 10MG/1ML VIAL INJ IV SCH (10:31)
[2020-02-21] MEDS: ENOXAPARIN SOD 60 MG/0.6 ML SYRINGE SC SCH ×2 (10:32→21:41)
[2020-02-21] MEDS: CHOLECALCIFEROL (VITD3) 2,000 UNIT CAP PO SCH (10:32)
[2020-02-21] MEDS: REMDESIVIR 100mg in NS 230ml DAILYx4DAYS (NO VENT) IV SCH (17:18)
[2020-02-21 18:01] VITALS: BP 149/26
[2020-02-21 21:45] VITALS: BP 154/25
[2020-02-22 02:00] VITALS: BP 162/40
[2020-02-22] MEDS: InsuLIN REG 1unit/0.01ml Soln (100units/ml) SC SCH ×4 (07:00→22:00)
[2020-02-22] MEDS: ACCU-CHEK COMFORT CURVE STRIP VI SCH ×4 (07:00→22:00)
[2020-02-22 07:17] VITALS: BP 147/66
[2020-02-22] MEDS: BUDESONIDE (INHALATION) 180 MCG IH IN SCH ×2 (07:17→22:25)
[2020-02-22] MEDS: ALBUTEROL SULF HFA 90MCG INH 200DOSE IN SCH ×3 (07:17→22:25)
[2020-02-22 08:39] LABS: Basophils # (auto) 0 10 ^3/uL (0-0.2); Basophils % (auto) 0.1 % (0.0-2.0); Eosinophils # (auto) 0 10 ^3/uL (0-0.8); Hemoglobin 14.6 g/dL (12.2-16.2); Lymphocytes # (auto) 0.6 10 ^3/uL (0.4-5.4); Lymphocytes % (auto) 6.3 % (10.0-50.0); Mean Corpuscular Hemoglobin 29.4 pg (28.0-32.0); Mean Corpuscular Hgb Conc. 31.8 g/dL (32.0-36.0); Mean Corpuscular Volume 92.5 fL (80.0-100.0); Monocytes # (auto) 0.3 10 ^3/uL (0-1.3); Monocytes % (auto) 2.9 % (0.0-12.0); Neutrophils # (auto) 8.6 10 ^3/uL (1.6-8.6); Neutrophils % (auto) 90.7 % (37.0-80.0); Nucleated Red Blood Cells % 0.1 %; Platelet Count (auto) 351 10^3/uL (140-450); Red Blood Cells 4.98 10^6/uL (4.0-5.20); Red Cell Distribution Width 17.4 % (11.8-14.3); White Blood Cell 9.5 10^3/uL (4.4-10.8)
[2020-02-22 09:02] LABS: Albumin 2.4 g/dL (3.4-5.0); Calcium 8.7 mg/dL (8.5-10.1); Potassium 3.8 mmol/L (3.5-5.1)
[2020-02-22 09:06] LABS: BUN/Creatinine Ratio 54.9; Bilirubin, Total 0.6 mg/dL (0.2-1.0); Total Protein 6.3 g/dL (6.4-8.2)
[2020-02-22] MEDS: ASCORBIC ACID 1,000 MG TAB PO SCH (09:45)
[2020-02-22] MEDS: ENOXAPARIN SOD 60 MG/0.6 ML SYRINGE SC SCH ×2 (09:45→22:00)
[2020-02-22] MEDS ORDERED: FUROSEMIDE 20 MG/2 ML VIAL IV ONE (09:45)
[2020-02-22] MEDS: ENSURE CLEAR Mixed Berry 8oz Carton PO SCH ×3 (09:45→18:00)
[2020-02-22] MEDS: DOXYCYCLINE 100MG/250ML 250 ML IV SCH (09:45)
[2020-02-22] MEDS: DexAMETHasone SOD PHOS 10MG/1ML VIAL INJ IV SCH (09:45)
[2020-02-22] MEDS: ZINC SULFATE 220mg CAP or TAB PO SCH (09:45)
[2020-02-22] MEDS: CHOLECALCIFEROL (VITD3) 2,000 UNIT CAP PO SCH (09:45)
[2020-02-22 10:16] VITALS: BP 124/70
--- NOTE | 2020-02-22 11:37 | NUR ---
Nutrition Followup Notes Pt wt is 63.2 kg Pt is positive for COVID, in ER waiting for a bed in ICU. Pt is on BIPAP, with a CCHO 60g diet. Pt appetite is 0% PO intake other than ice water per RN doc. If pt appetite remains poor for the next 48 hours consider supplemental nutrition support. If GI is preferred route, consider Glucerna 1.2 @ 50 ml/hr goal rate as tolerated and per MD approval. Est Energy needs: 1021-2445 kcals (20-23 kcal/kgBW) Est Protein needs: 63-69 gms/day (1.0-1.1 gm/kgBW) Will continue to monitor and reassess prn. LABS: Pending GI: Pt had BM on 02/20, diarrhea per RN doc. BS: No score reported PES: 1) Altered nutrition related lab values r/t current/chronic medical condition aeb elev RFTs, hyperglycemia, elev A1c, hypoalbuminemia 2) Food and nutrition knowledge deficit r/t pt dietary non-compliance aeb elev A1c, hyperglycemia Comments Will continue to monitor PO status, skin status, pertinent labs and weight trends. Will f/u in 3-5 days 1) Continue to closely monitor pt PO intake to meet at least 75% of meals 2) If pt appetite remains poor for the next 48 hours consider supplemental nutrition support. If GI is preferred route, consider Glucerna 1.2 @ 50 ml/hr goal rate as tolerated and per MD approval. 3) Refer pt to a RD/CDE upon D/C 4) Continue current plan of care
--- NOTE | 2020-02-22 12:15 | NUR ---
Respiratory note: CHANGED BIPAP SETTING ORDERED BY DR. KEY 02/27 BUR 12 90%. PT TOLERATED CHANGE WELL. RAYMOND CAMARGO AT BEDSIDE. PT HELPED TO BEDSIDE COMMODE AND PLACED ON 15L NRB PT STATES SHE WOULD LIKE A BREAK FROM BIPAP. PT HAS MINIMAL AMOUNT OF REDNESS TO FOREHEAD AND BRIDGE OF NOSE. RAYMOND CAMARGO REMAINS AT BEDSIDE AND AWARE TO HAVE RT PAGED IF NEEDED.
[2020-02-22] MEDS: REMDESIVIR 100mg in NS 230ml DAILYx4DAYS (NO VENT) IV SCH (17:00)
[2020-02-22 21:30] VITALS: BP 124/70
[2020-02-22] MEDS ORDERED: InsuLIN REG 1unit/0.01ml Soln (100units/ml) ONE (22:24)
[2020-02-23] VITALS (32 sets, daily range): BP systolic 73–166; BP diastolic 32–72
[2020-02-23] MEDS: ALBUTEROL SULF HFA 90MCG INH 200DOSE IN SCH ×2 (05:31→14:00)
[2020-02-23] MEDS: BUDESONIDE (INHALATION) 180 MCG IH IN SCH (05:31)
[2020-02-23] MEDS: InsuLIN REG 1unit/0.01ml Soln (100units/ml) SC SCH ×4 (06:52→22:00)
[2020-02-23] MEDS: ACCU-CHEK COMFORT CURVE STRIP VI SCH ×4 (06:52→22:21)
[2020-02-23 08:11] LABS: Basophils # (auto) 0 10 ^3/uL (0-0.2); Basophils % (auto) 0.1 % (0.0-2.0); Eosinophils # (auto) 0 10 ^3/uL (0-0.8); Hematocrit 46.9 % (36.0-46.0); Hemoglobin 14.6 g/dL (12.2-16.2); Lymphocytes # (auto) 0.4 10 ^3/uL (0.4-5.4); Lymphocytes % (auto) 5.3 % (10.0-50.0); Mean Corpuscular Hemoglobin 29.3 pg (28.0-32.0); Mean Corpuscular Hgb Conc. 31.1 g/dL (32.0-36.0); Mean Corpuscular Volume 94.1 fL (80.0-100.0); Monocytes # (auto) 0.3 10 ^3/uL (0-1.3); Monocytes % (auto) 3.3 % (0.0-12.0); Neutrophils # (auto) 7.3 10 ^3/uL (1.6-8.6); Neutrophils % (auto) 91.3 % (37.0-80.0); Nucleated Red Blood Cells % 0.1 %; Platelet Count (auto) 296 10^3/uL (140-450); Red Blood Cells 4.98 10^6/uL (4.0-5.20); Red Cell Distribution Width 17.9 % (11.8-14.3)
[2020-02-23 08:32] LABS: BUN/Creatinine Ratio 57.6; Calcium 8.8 mg/dL (8.5-10.1); Magnesium 2.5 mg/dL (1.6-2.6)
[2020-02-23] MEDS: ZINC SULFATE 220mg CAP or TAB PO SCH (11:13)
[2020-02-23] MEDS: DexAMETHasone SOD PHOS 10MG/1ML VIAL INJ IV SCH (11:13)
[2020-02-23] MEDS: FUROSEMIDE 20 MG/2 ML VIAL IV SCH (11:13)
[2020-02-23] MEDS: ASCORBIC ACID 1,000 MG TAB PO SCH (11:13)
[2020-02-23] MEDS: CHOLECALCIFEROL (VITD3) 2,000 UNIT CAP PO SCH (11:13)
[2020-02-23] MEDS: ENOXAPARIN SOD 60 MG/0.6 ML SYRINGE SC SCH ×2 (11:13→20:28)
[2020-02-23] MEDS: ENSURE CLEAR Mixed Berry 8oz Carton PO SCH ×3 (11:54→13:32)
[2020-02-23] MEDS ORDERED: MIDAZOLAM DRIP 50 mg/50mL 50 ML IV ONE (11:58)
[2020-02-23] MEDS ORDERED: ETOMIDATE (2MG/ML) 20ML VIAL IV ONE ×2 (11:59→13:30)
[2020-02-23] MEDS ORDERED: SUCCINYLCHOLINE CHLORIDE 20 MG/ML 10ML VIAL IV ONE ×2 (11:59→13:30)
--- NOTE | 2020-02-23 12:57 | NUR ---
Respiratory note: PATIENT INTUBATED BY DR. DORADO FOR RESPIRATORY FAILURE. TUBED WITH A 7.5 ETT. POSITIVE COLOR CHANGE IN CO2 DETECTOR, BILAT BREATH SOUNDS HEARD. PLACED ON VENT WITH ORDERED SETTINGS. NOT OXYGENATING WELL, DR. DORADO AWARE. SPUTUM SAMPLE COLLECTED AND SENT TO LAB. VENT PLUGGED INTO RED OUTLET AND ALL ALARMS ARE SET AND AUDIBLE. WILL CONTINUE TO MONITOR.
[2020-02-23] MEDS ORDERED: NOREPINEPHRINE 8 MG/250ML KIT 250 ML IV ONE (13:04)
[2020-02-23] MEDS: PROPOFOL 100 ML IV SCH ×2 (13:30→21:24)
[2020-02-23] MEDS: NOREPINEPHRINE 8 MG/250ML KIT 250 ML IV SCH ×2 (13:30→23:41)
[2020-02-23] MEDS: MIDAZOLAM DRIP 50 mg/50mL 50 ML IV SCH ×2 (13:30→20:30)
[2020-02-23] MEDS ORDERED: SODIUM BICARBONATE 8.4 % INJ 50ML VIAL IV ONE (15:00)
[2020-02-23] MEDS ORDERED: dilTIAZem 25 MG/5 ML VIAL IV ONE ×2 (15:52→16:15)
--- NOTE | 2020-02-23 16:45 | NUR ---
Admit to ICU from ER on vent INMAN,NANCYadmitted to ICU via gurney on case monitor, intubated and being bagged by Respiratory Therapist. Patient transfered to bed, connected to mechanical ventilator by therapist, PILI at bedside. Patient connected to ICU monitoring, weighed by bedscale. Patient currently on Levo 26 mcg's, Versed 15 mg infusing to TLC in right IJ. Vent settings AC 22, Vt 425, FiO2 100%, PEEP 8. Patient currently A-fib RVR on monitor rate 160-190. Rectal temp 101.1, cooling blanket placed.
--- NOTE | 2020-02-23 17:12 | NUR ---
HOSPITALIST PAGED/RETURNED CALL call worker hospitalist paged regarding HR and rhythm. Dr. Rodriguez returned page, informed him patient A-fib RVR rate 160-190's, states he will enter orders.
[2020-02-23] MEDS ORDERED: DIGOXIN (250MCG/ML) 2 ML AMPULE IV ONE (17:30)
[2020-02-23] MEDS ORDERED: DIGOXIN (250MCG/ML) 2 ML AMPULE ONE (17:33)
--- NOTE | 2020-02-23 17:40 | NUR ---
MD AT BEDSIDE: Dr. Dee at beside, discussed with patient's current condition: HR 180-200 rhythm A-fib RVR and hypotension with maxed out Levophed. Orders received for Joe and Amio protocol.
[2020-02-23] MEDS ORDERED: AMIODARONE HCL 150 MG in D5W 5% 100 ML IV ONE (17:45)
[2020-02-23] MEDS ORDERED: AMIODARONE 450mg/250ml AE 250 ML IV SCH (18:00)
[2020-02-23] MEDS: PHENYLEPHRINE INJ 40 MG in SODIUM CHL 0.9% 250 ML IV SCH (18:00)
--- NOTE | 2020-02-23 19:30 | NUR ---
REPORT RECEIVED REPORT FROM NURSE AYALA TO RESUME CARE OF PATIENT.
[2020-02-23] MEDS: BUDESONIDE (INHALATION) 0.5 MG/2 ML NEB NEB SCH (21:12)
[2020-02-23] MEDS: ALBUTEROL SULF 2.5 MG/0.5ML(0.5%) NEB SOLN NEB SCH (21:12)
--- NOTE | 2020-02-23 21:30 | NUR ---
NEOSYNEPHRINE TURNED OFF PATIENT NEOSYNEPHRINE PATIENT BP TRENDING UP.
--- NOTE | 2020-02-23 21:45 | NUR ---
DIPRIVAN PATIENT TACHYPNEIC 30-40S NOT TOLERATED VENTILATOR. SUCTIONED PATIENT, HAS MINIMAL SECRETIONS. PATIENT O2SAT ABOVE 92%. STARTED PATIENT ON DIPRIVAN 5MCG/KG/MIN. PATIENT TOLERATED WELL, NO ADVERSE REACTIONS. NO S/S OF RESPIRATORY DISTRESS. WILL CONTINUE TO MONITOR PATIENT.
[2020-02-23] MEDS: AMIODARONE 450mg/250ml AE 250 ML IV SCH (23:39)
--- NOTE | 2020-02-23 23:45 | NUR ---
AMIODARONE GTT PER AMIODARONE GTT PROTOCOL PATIENT HAS ORDERS TO TURN DOWN RATE TO 0.5MG/HR, PATIENT CURRENT RATE AMIODARONE GTT 1MG/HR. TITRATED PATIENT AMIODARONE GTT TO 0.5MG/HR PATIENT REMAINS AFIB 80-100S. WILL CONTINUE TO MONITOR PATIENT.
[2020-02-24] VITALS (99 sets, daily range): BP systolic 88–173; BP diastolic 39–91
[2020-02-24] MEDS: MIDAZOLAM DRIP 50 mg/50mL 50 ML IV SCH ×3 (00:25→21:18)
[2020-02-24] MEDS: DIGOXIN (250MCG/ML) 2 ML AMPULE IV SCH ×3 (04:58→07:32)
--- NOTE | 2020-02-24 05:11 | NUR ---
TURNED OFF PATIENT COOLING BLANKETS PATIENT AFEBRILE AT 98.1
--- NOTE | 2020-02-24 05:11 | NUR ---
AM CARE GIVEN TO PATIENT.
[2020-02-24] MEDS: ACCU-CHEK COMFORT CURVE STRIP VI SCH ×4 (05:59→21:16)
[2020-02-24] MEDS: InsuLIN REG 1unit/0.01ml Soln (100units/ml) SC SCH ×4 (06:20→21:45)
[2020-02-24] MEDS: BUDESONIDE (INHALATION) 0.5 MG/2 ML NEB NEB SCH ×2 (06:35→22:11)
[2020-02-24] MEDS: ALBUTEROL SULF 2.5 MG/0.5ML(0.5%) NEB SOLN NEB SCH ×3 (06:35→22:11)
--- NOTE | 2020-02-24 07:04 | NUR ---
REPORT GAVE REPORT TO NURSE BARBER TO RESUME CARE OF PATIENT.
[2020-02-24] MEDS: ENSURE CLEAR Mixed Berry 8oz Carton PO SCH ×3 (07:29→18:00)
[2020-02-24] MEDS: FUROSEMIDE 20 MG/2 ML VIAL IV SCH ×2 (10:00→21:17)
[2020-02-24] MEDS: DexAMETHasone SOD PHOS 10MG/1ML VIAL INJ IV SCH (10:04)
[2020-02-24] MEDS: ZINC SULFATE 220mg CAP or TAB PO SCH (10:04)
[2020-02-24] MEDS: ASCORBIC ACID 1,000 MG TAB PO SCH (10:04)
[2020-02-24] MEDS: CHOLECALCIFEROL (VITD3) 2,000 UNIT CAP PO SCH (10:04)
[2020-02-24] MEDS: ENOXAPARIN SOD 60 MG/0.6 ML SYRINGE SC SCH ×2 (10:05→21:16)
--- NOTE | 2020-02-24 10:05 | NUR ---
AT BEDSIDE; Dr. Humphrey at bedside, updated on patient condition. Called and spoke with patient's son, provided update on patient condition informing him patient is in stable condition and that her condition had improved since yesterday.
[2020-02-24] MEDS: PHENYLEPHRINE INJ 40 MG in SODIUM CHL 0.9% 250 ML IV SCH (10:25)
--- NOTE | 2020-02-24 11:02 | NUR ---
WOUND CARE NOTE: Wound care in to see patient per wound care request regarding low Shalom score of 12 and intubation status,putting patient to high risk for skin breakdown. Patient is 80 years old female with admitting diagnosis of Acute Resp Failure. Patient is resting in ICU low air loss bed in Rm. 101. Patient is intubated, sedated and mechanically ventilated. Patient appears to be in no pain using Nur Moore Faces Pain Scale. No reports of skin issue other than ecchymosis Rt periorbital area. Patient is receiving BID/PRN cleaning and application of Barrier cream to sacral, buttocks as preventative. RECOMMENDATION: Nursing to continue with BID/PRN cleaning and application of Barrier cream to sacral buttocks as preventative, frequent turning and repositioning schedule as condition permits, redistribute pressure points with pillows, elevate heels on pillows, continue monitoring by wound care while patient is intubated and Shalom score is <18.
--- NOTE | 2020-02-24 11:08 | NUR ---
Nutrition Followup Notes Pt wt is 66.7 kg Pt is positive for COVID, in ICU. Pt is now intubated, partially sedated with propofol @ 1.897 ml/hr providing 41 kcals from lipids. Pt is a consult for TPN but with no order scheduled yet. Est Energy needs: 5814-2755 kcals (20-23 kcal/kgBW) Est Protein needs: 63-69 gms/day (1.0-1.1 gm/kgBW) Will continue to monitor and reassess prn. LABS: Gluc 360 H, BUN 49 H, ALB 1.24 L GI: Pt had no BM today per RN doc. BS: 12 high risk. Refer to wound assessment report for further details. PES: 1) Altered nutrition related lab values r/t current/chronic medical condition aeb elev RFTs, hyperglycemia, elev A1c, hypoalbuminemia 2) Food and nutrition knowledge deficit r/t pt dietary non-compliance aeb elev A1c, hyperglycemia Comments Will continue to monitor PO status, skin status, pertinent labs and weight trends. Will f/u in 3-5 days 1) Continue to closely monitor pt PO intake to meet at least 75% of meals 2) If pt appetite remains poor for the next 48 hours consider supplemental nutrition support. If GI is preferred route, consider Glucerna 1.2 @ 50 ml/hr goal rate as tolerated and per MD approval. 3) Refer pt to a RD/CDE upon D/C 4) Continue current plan of care
--- NOTE | 2020-02-24 12:00 | NUR ---
BRADYCARDIA; Patient's heart rate dropping to 36, Amiodarone drip paused, decreased dosage of Diprivan. Physician notified.
--- NOTE | 2020-02-24 13:13 | NUR ---
Pt is currently intubated and will need to be assessed once medically stable. Addendum: 02/24/20 at 1443 by SAHIL LOCKE Amended: Links added.
[2020-02-24] MEDS: AMIODARONE 450mg/250ml AE 250 ML IV SCH (15:00)
--- NOTE | 2020-02-24 15:15 | NUR ---
RE-WARMING: Patient's rectal temperature currently 96.8, re-warming measures in place.
--- NOTE | 2020-02-24 19:15 | NUR ---
REPORT RECEIVED REPORT FROM NURSE MENDOZA TO RESUME CARE OF PATIENT
--- NOTE | 2020-02-24 22:11 | NUR ---
FI02 PATIENT FIO2 DECREASED FROM 65 TO 55%.
[2020-02-25] VITALS (92 sets, daily range): BP systolic 86–172; BP diastolic 50–113
[2020-02-25] MEDS: PHENYLEPHRINE INJ 40 MG in SODIUM CHL 0.9% 250 ML IV SCH ×2 (02:35→19:45)
[2020-02-25] MEDS: MIDAZOLAM DRIP 50 mg/50mL 50 ML IV SCH ×3 (02:56→19:37)
[2020-02-25] MEDS: AMIODARONE 450mg/250ml AE 250 ML IV SCH ×2 (04:01→21:00)
[2020-02-25 04:09] LABS: Hematocrit 45.1 % (36.0-46.0); Hemoglobin 14.2 g/dL (12.2-16.2); Mean Corpuscular Hemoglobin 28.9 pg (28.0-32.0); Mean Corpuscular Hgb Conc. 31.6 g/dL (32.0-36.0); Mean Corpuscular Volume 91.3 fL (80.0-100.0); Platelet Count (auto) 258 10^3/uL (140-450); Red Blood Cells 4.93 10^6/uL (4.0-5.20); Red Cell Distribution Width 17.6 % (11.8-14.3)
[2020-02-25 04:36] LABS: Albumin 2.1 g/dL (3.4-5.0); BUN/Creatinine Ratio 36.9; Calcium 8.5 mg/dL (8.5-10.1); Magnesium 2.6 mg/dL (1.6-2.6); Potassium 3.4 mmol/L (3.5-5.1)
[2020-02-25 04:48] LABS: Bilirubin, Total 0.7 mg/dL (0.2-1.0); CRP High Sensitivity 11.8 mg/dL (< 0.3); Total Protein 6.2 g/dL (6.4-8.2)
[2020-02-25 05:02] LABS: Basophils % (manual) 0 (0.0-2.0); Blast Cells 0; Eosinophils % (manual) 0 (0-7); Promyelocytes % 0; Reactive Lymphocytes 0
[2020-02-25] MEDS: ACCU-CHEK COMFORT CURVE STRIP VI SCH ×4 (05:42→23:30)
[2020-02-25] MEDS: InsuLIN REG 1unit/0.01ml Soln (100units/ml) SC SCH ×4 (06:03→23:30)
[2020-02-25] MEDS: ALBUTEROL SULF 2.5 MG/0.5ML(0.5%) NEB SOLN NEB SCH ×3 (06:07→22:00)
[2020-02-25] MEDS: BUDESONIDE (INHALATION) 0.5 MG/2 ML NEB NEB SCH ×2 (06:07→22:00)
--- NOTE | 2020-02-25 06:57 | NUR ---
PATIENT DESATURATING IN 80S. RT NOTIFIED. PATIENT ALSO TACHYPNEIC IN 30. INCREASED PATIENT PROPOFOL TO 15MCG/KG/MIN. SUCTIONED PATIENT AND REPOSITIONED HOB ABOVE 30 DEGREES. PATIENT MORE RELAXED AND RR 20S O2SAT 95% WITH FIO2 45%.
[2020-02-25 07:36] LABS: Band Neutrophils % (manual) 10; Lymphocytes % (manual) 5 (10.0-50.0); Metamyelocytes % 3; Monocytes % (manual) 2 (0-12); Myelocytes % 1
[2020-02-25] MEDS: ENSURE CLEAR Mixed Berry 8oz Carton PO SCH ×3 (08:00→18:00)
--- NOTE | 2020-02-25 09:06 | NUR ---
Resumed care at 0715, orders reviewed and ongoing assessments being done. Remains intubated and sedated and is Covid-19 positive. In isolation per protocol. At this time not able to open eyes or follow any directions. Remains on Levophed gtt for hemodynamic stability and will titrate as appropriate. Infusing via RIJ, TLC, no signs of infiltration. Spoke with Dr. Humphrey at 0749. Discussed condition and plan of care. Remains a DNR status. Reported K level =3.4, orders obtained for K replacement.
[2020-02-25] MEDS: POTASSIUM CHL 20MEQ/100ML 100 ML IV SCH ×2 (10:20→11:51)
[2020-02-25] MEDS: ZINC SULFATE 220mg CAP or TAB PO SCH (10:22)
[2020-02-25] MEDS: ASCORBIC ACID 1,000 MG TAB PO SCH (10:22)
[2020-02-25] MEDS: DexAMETHasone SOD PHOS 10MG/1ML VIAL INJ IV SCH (10:22)
[2020-02-25] MEDS: CHOLECALCIFEROL (VITD3) 2,000 UNIT CAP PO SCH (10:24)
[2020-02-25] MEDS: ENOXAPARIN SOD 60 MG/0.6 ML SYRINGE SC SCH (10:24)
[2020-02-25] MEDS: NOREPINEPHRINE 8 MG/250ML KIT 250 ML IV SCH ×2 (12:02→16:47)
[2020-02-25] MEDS: PROPOFOL 100 ML IV SCH (12:30)
[2020-02-25] MEDS: SODIUM CHLORIDE 0.9% 1,000 ML IV SCH (13:08)
[2020-02-25] MEDS ORDERED: SODIUM CHLORIDE 0.9 % NEB SOLN 3ML NEB ONE (13:49)
--- NOTE | 2020-02-25 15:46 | NUR ---
Dr. Humphrey rounded at 1130. Discussed condition and plan of care. Per Dr. Humphrey, will call family to update them. Received call from son Adrian at 1019. Dr. Humphrey had phoned family and spoke with son Adrian. Adrian arrived and met him in the [facility] lobby at 1401. Discussed conversation he had with Dr. Humphrey. On 02-23-20 Adrian had signed the POLST form and patient made a DNR status. Discussed plan of care, son had not understood what the form disclosed. Reviewed POST form with Adrian. Per Adrian he does not want a DNR status, he wants all heroic measures to be taken. Dr. Humphrey unavailable and Dr. Mccann covering for the next 2-3 hours. Full code now.
--- NOTE | 2020-02-25 19:25 | NUR ---
DR ANDRADE TO UNIT TO EVALUATE PT ORDER RECEIVED FOR CHEST XRAY. ORDER PLACED.
--- NOTE | 2020-02-25 19:30 | NUR ---
OPEN ASSUMED CARE OF FEMALE PT ORALLY INTUBATED. PT SEDATED ON DIPRIVAN GTT 15 MCG/KG/MIN, AND VERSED GTT 12 MG/HR. PT GRIMACES TO TACTILE STIMULI. WITHDRAWS FROM STIMULI. RR INCREASE OBSERVED 33 BPM. WILL INCREASE SEDATION. SEE IV SPREADSHEET. PT AFIB ON DEFENSIVE LINE COACH. PT ON WARMING MEASURES FOR LOW TEMP. SEE VITAL SIGN SPREADSHEET. PT ON LEVOPHED GTT 3 MCG/MIN. GTT'S RUNNING INTO R. IJ TLC WITH CDI DRESSING. ALL PORTS PATENT. NGT TO R. NARE CLAMPED. PLACEMENT VERIFIED. SML AMOUNT OF BRUISING OBSERVED TO PT'S R. EYE. IRENE TO GRAVITY DRAINING CLEAR YELLOW URINE. OPTIFOAM GENTLE SACRAL DRESSING IN PLACE OVER INTACT SKIN. PILLOWS USED TO OFFLOAD BONY PROMINENCES AND COREEN LOWER EXTREMITIES. BED IN LOWEST LOCKED POSITION. SIDE RAILS UP X 3. HOB ELEVATED 30 DEGREES. ALARMS ON AND AUDIBLE. PT IN FULL VIEW OF RN STATION. WILL CONTINUE TO MONITOR.
--- NOTE | 2020-02-25 21:20 | NUR ---
SEDATION INAPPROPRIATE AT THIS TIME. SEDATION INCREASED PT RR 33 ON [facility] VENTILATOR. SEDATION VACATION HELD. Addendum: 02/25/20 at 2121 by Marie Castillo RN Amended: Links added.
--- NOTE | 2020-02-25 23:39 | NUR ---
DR KEY TO UNIT TO EVALUATE PT NO NEW ORDERS GIVEN.
[2020-02-26] VITALS (91 sets, daily range): BP systolic 89–173; BP diastolic 40–87
--- NOTE | 2020-02-26 | NUR ---
INCREASED RR/SEDATION PT RR 33 ON VENT. SEDATION INCREASED TO IMPROVE COMPLIANCE WITH VENTILATOR. SEE IV SPREADSHEET.
[2020-02-26] MEDS: MIDAZOLAM DRIP 50 mg/50mL 50 ML IV SCH ×5 (00:11→20:42)
[2020-02-26] MEDS: PROPOFOL 100 ML IV SCH ×3 (03:00→20:42)
--- NOTE | 2020-02-26 03:30 | NUR ---
Patient bathe/linen change Patient given PARTIAL BED bath. Skin integrity assessed for any changes. Linens changed. Patient repositioned for comfort.
[2020-02-26 04:22] LABS: Basophils # (auto) 0 10 ^3/uL (0-0.2); Eosinophils # (auto) 0 10 ^3/uL (0-0.8); Hematocrit 42.5 % (36.0-46.0); Hemoglobin 13.5 g/dL (12.2-16.2); Lymphocytes # (auto) 0.7 10 ^3/uL (0.4-5.4); Lymphocytes % (auto) 5.9 % (10.0-50.0); Mean Corpuscular Hemoglobin 29.1 pg (28.0-32.0); Mean Corpuscular Hgb Conc. 31.8 g/dL (32.0-36.0); Mean Corpuscular Volume 91.7 fL (80.0-100.0); Monocytes # (auto) 0.4 10 ^3/uL (0-1.3); Monocytes % (auto) 3.3 % (0.0-12.0); Neutrophils # (auto) 10.2 10 ^3/uL (1.6-8.6); Neutrophils % (auto) 90.8 % (37.0-80.0); Nucleated Red Blood Cells % 0.3 %; Platelet Count (auto) 219 10^3/uL (140-450); Red Blood Cells 4.63 10^6/uL (4.0-5.20); White Blood Cell 11.3 10^3/uL (4.4-10.8)
[2020-02-26 04:49] LABS: BUN/Creatinine Ratio 46.5; Bilirubin, Total 0.6 mg/dL (0.2-1.0); Calcium 8.3 mg/dL (8.5-10.1); Potassium 3.9 mmol/L (3.5-5.1); Total Protein 5.6 g/dL (6.4-8.2)
[2020-02-26] MEDS: ACCU-CHEK COMFORT CURVE STRIP VI SCH ×4 (05:28→23:02)
[2020-02-26] MEDS: InsuLIN REG 1unit/0.01ml Soln (100units/ml) SC SCH ×4 (05:39→23:02)
[2020-02-26] MEDS: SODIUM CHLORIDE 0.9% 1,000 ML IV SCH ×2 (06:30→14:25)
[2020-02-26] MEDS ORDERED: DEXTROSE (50%) 50ML SYRG IV PRN (07:45)
[2020-02-26] MEDS: ENSURE CLEAR Mixed Berry 8oz Carton PO SCH ×2 (08:00→12:00)
[2020-02-26] MEDS: ENOXAPARIN SOD 60 MG/0.6 ML SYRINGE SC SCH (10:00)
[2020-02-26] MEDS: ZINC SULFATE 220mg CAP or TAB PO SCH (10:05)
[2020-02-26] MEDS: DexAMETHasone SOD PHOS 10MG/1ML VIAL INJ IV SCH (10:05)
[2020-02-26] MEDS: CHOLECALCIFEROL (VITD3) 2,000 UNIT CAP PO SCH (10:05)
[2020-02-26] MEDS: ASCORBIC ACID 1,000 MG TAB PO SCH (10:05)
[2020-02-26] MEDS: FUROSEMIDE 40 MG/4 ML VIAL IV SCH (10:05)
--- NOTE | 2020-02-26 10:51 | NUR ---
Resumed care at 0729, orders reviewed and ongoing assessments being done. Remains in isolation and being treated for Covid-19. Remains intubated and sedated. At this time not able to follow and simple direction or open eyes. Remains on Levophed gtt for hemodynamic stability and will titrate as appropriate. Dr. Humphrey rounded at 0720, continue current plan of care. Held scheduled am Lovenox. Noted blood tinged urine and oral secretions, will notify Dr. Humphrey. Contacted Adrian (son) at [phone] and updated on plan of care.
[2020-02-26] MEDS: AMIODARONE 450mg/250ml AE 250 ML IV SCH (12:00)
[2020-02-26] MEDS: PHENYLEPHRINE INJ 40 MG in SODIUM CHL 0.9% 250 ML IV SCH (12:25)
[2020-02-26] MEDS: ALBUTEROL SULF 2.5 MG/0.5ML(0.5%) NEB SOLN NEB SCH ×3 (13:13→22:17)
[2020-02-26] MEDS: BUDESONIDE (INHALATION) 0.5 MG/2 ML NEB NEB SCH ×2 (13:14→22:18)
--- NOTE | 2020-02-26 14:43 | NUR ---
Nutrition Followup Notes Pt wt is 70 kg Pt is positive for COVID, in ICU. Pt is intubated and sedated with propofol at 11.385 ml/hr providing 301 kcal from lipids. Consider starting pt on TF of Glucerna 1.2 with a goal rate of 50 ml/hr Est Energy needs: 1044-7920 kcals (20-23 kcal/kgBW) Est Protein needs: 63-69 gms/day (1.0-1.1 gm/kgBW) Will continue to monitor and reassess prn. LABS: BUN 80H, Creat 1.72H, Alb 2.0L, GLUC 321H, Ca 8.3L GI: Pt had no BM today per RN doc. BS: 12 high risk. Refer to wound assessment report for further details. PES: 1) Altered nutrition related lab values r/t current/chronic medical condition aeb elev RFTs, hyperglycemia, elev A1c, hypoalbuminemia 2) Food and nutrition knowledge deficit r/t pt dietary non-compliance aeb elev A1c, hyperglycemia Comments Will continue to monitor PO status, skin status, pertinent labs and weight trends. Will f/u in 2-3 days 1) consider Glucerna 1.2 @ 50 ml/hr goal rate as tolerated and per MD approval. 2) Refer pt to a RD/CDE upon D/C 3) Continue current plan of care
[2020-02-26] MEDS: NOREPINEPHRINE 8 MG/250ML KIT 250 ML IV SCH (16:18)
[2020-02-26] MEDS ORDERED: Glucerna 1.2 Cal 1Liter BOTTLE GT SCH (18:00)
--- NOTE | 2020-02-26 20:00 | NUR ---
OPEN ASSUMED CARE OF FEMALE PT ORALLY INTUBATED. PT ON RESPIRATORY ISOLATION FOR COVID 19. PT SEDATED ON DIPRIVAN GTT 30 MCG/KG/MIN, AND VERSED GTT 15 MG/HR. PT GRIMACES TO TACTILE STIMULI. WITHDRAWS FROM STIMULI.. 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 PT ON LEVOPHED GTT 2 MCG/MIN. GTT'S RUNNING INTO R. IJ TLC WITH CDI DRESSING. ALL PORTS PATENT. NGT TO R. NARE CLAMPED. PLACEMENT VERIFIED. SML AMOUNT OF BRUISING OBSERVED TO PT'S R. EYE. IRENE TO GRAVITY DRAINING SHAHID/BLOOD TINGED URINE. OPTIFOAM GENTLE SACRAL DRESSING IN PLACE OVER INTACT SKIN. PILLOWS USED TO OFFLOAD BONY PROMINENCES AND COREEN LOWER EXTREMITIES. BED IN LOWEST LOCKED POSITION. SIDE RAILS UP X 3. HOB ELEVATED 30 DEGREES. ALARMS ON AND AUDIBLE. PT IN FULL VIEW OF RN STATION. WILL CONTINUE TO MONITOR.
[2020-02-27] VITALS (81 sets, daily range): BP systolic 70–164; BP diastolic 39–96
[2020-02-27] MEDS: MIDAZOLAM DRIP 50 mg/50mL 50 ML IV SCH ×7 (01:06→22:59)
[2020-02-27] MEDS: AMIODARONE 450mg/250ml AE 250 ML IV SCH ×2 (03:00→18:00)
--- NOTE | 2020-02-27 03:00 | NUR ---
Patient bathe/linen change Patient given partial bed bath. Skin integrity assessed for any changes. Linens changed. Patient repositioned for comfort.
[2020-02-27 04:32] LABS: Hematocrit 39.2 % (36.0-46.0); Hemoglobin 12.3 g/dL (12.2-16.2); Mean Corpuscular Hemoglobin 28.8 pg (28.0-32.0); Mean Corpuscular Hgb Conc. 31.3 g/dL (32.0-36.0); Platelet Count (auto) 188 10^3/uL (140-450); Red Blood Cells 4.27 10^6/uL (4.0-5.20); Red Cell Distribution Width 17.2 % (11.8-14.3); White Blood Cell 11.4 10^3/uL (4.4-10.8)
[2020-02-27 04:42] LABS: Calcium 8.4 mg/dL (8.5-10.1)
[2020-02-27 04:45] LABS: BUN/Creatinine Ratio 50.6
[2020-02-27] MEDS: PROPOFOL 100 ML IV SCH ×3 (05:00→20:30)
[2020-02-27] MEDS: PHENYLEPHRINE INJ 40 MG in SODIUM CHL 0.9% 250 ML IV SCH ×2 (05:05→21:45)
[2020-02-27 05:11] LABS: Basophils % (manual) 0 (0.0-2.0); Blast Cells 0; Eosinophils % (manual) 0 (0-7); Metamyelocytes % 0; Myelocytes % 0; Promyelocytes % 0; Reactive Lymphocytes 0
[2020-02-27] MEDS: ACCU-CHEK COMFORT CURVE STRIP VI SCH ×4 (05:38→17:54)
[2020-02-27] MEDS: InsuLIN REG 1unit/0.01ml Soln (100units/ml) SC SCH ×4 (05:52→17:54)
[2020-02-27 06:08] LABS: Band Neutrophils % (manual) 2; Lymphocytes % (manual) 4 (10.0-50.0); Monocytes % (manual) 2 (0-12)
[2020-02-27] MEDS: ALBUTEROL SULF 2.5 MG/0.5ML(0.5%) NEB SOLN NEB SCH ×3 (06:12→22:07)
--- NOTE | 2020-02-27 06:12 | NUR ---
Respiratory note: RECEIVED PT FROM COMMERCIAL ARTIST LETTERING ON VENT V-17 PLUGGED INTO RED OUTLET. ALL VENT ALARMS ARE AUDIBLE, AND FUNCTIONING. AMBU BAG/MASK WITH PEEP VALVE IS AT BEDSIDE CONNECTED TO AN O2 SOURCE. ETT IS 7.5 @ THE 23 LIP LINE SECURED WITH A BRANDIN. MOVED ETT FROM LEFT, TO RIGHT. NO ORAL/SKIN BREAK DOWN NOTED. BS ARE CLEAR/DIMINISHED BILATERALLY. SX FOR A SCANT AMOUNT OF THICK, BLOOD TINGED SECRETIONS. GAG REFLEX NOTED. MEDNEB TX GIVEN INLINE, WITH NO ADVERSE EFFECTS NOTED. PT SKIN IS SLIGHTLY EDEMAS IN BOTH UPPER, AND LOWER EXTREMITIES. PT SKIN IS WARM/DRY TO THE TOUCH. PT IS UNRESPONSIVE TO VERBAL STIMULI, HOWEVER RESPONDS TO TACTILE STIMULI. NO NEW VENT CHANGES ORDERED AT THIS TIME. WILL CONTINUE TO MONITOR PT. CHARTING COMPLETE FROM OUTSIDE OF PT ROOM PER COVID-19
[2020-02-27] MEDS: BUDESONIDE (INHALATION) 0.5 MG/2 ML NEB NEB SCH ×2 (06:22→22:07)
[2020-02-27] MEDS: FUROSEMIDE 40 MG/4 ML VIAL IV SCH (09:50)
[2020-02-27] MEDS: DexAMETHasone SOD PHOS 10MG/1ML VIAL INJ IV SCH (09:50)
[2020-02-27] MEDS: ENOXAPARIN SOD 60 MG/0.6 ML SYRINGE SC SCH (09:51)
[2020-02-27] MEDS: ZINC SULFATE 220mg CAP or TAB PO SCH (09:51)
[2020-02-27] MEDS: ASCORBIC ACID 1,000 MG TAB PO SCH (09:51)
[2020-02-27] MEDS: CHOLECALCIFEROL (VITD3) 2,000 UNIT CAP PO SCH (09:51)
--- NOTE | 2020-02-27 16:06 | NUR ---
PATIENT SUCTIONED AND ORAL CARE DONE OBTAINED WHITISH COLOR SECRETIONS SMALL AMOUNT. ATTEMPTED TO TITRATE LEVOPHED TO 1 MCG BP WENT DOWN TO HIGH 80'S AND SUCTIONED AND PATIENT HEART RATE INCREASED TO HIGH 70'S. PATIENT REMAINED ON ATRIAL FIBRILLATION. SON CALLED AND GIVEN UPDATE. PATIENT REMAINED ON 15 MG OF VERSED AND PROPOFOL AT 30 MCG OF SEDATION.
--- NOTE | 2020-02-27 18:02 | NUR ---
PATIENT'S NGT ASPIRATED FOR RESIDUAL AND RESIDUAL IS OVER 100 HELD TF AND PATIENT HAVE COFFEE GROUND LARGE AMOUNT ON THE RESIDUAL. DR ANDRADE NOTIFIED AND HE INCREASED THE PROTONIX TO BID SAID NOT TO DISCONTINUE LOVENOX DUE TO PATIENT HAVING COVID AN SHE IS ON ATRIAL FIB.
--- NOTE | 2020-02-27 19:30 | NUR ---
OPEN ASSUMED CARE OF FEMALE PT ORALLY INTUBATED. PT ON RESPIRATORY ISOLATION FOR COVID 19. PT SEDATED ON DIPRIVAN GTT 30 MCG/KG/MIN, AND VERSED GTT 15 MG/HR. PT GRIMACES TO TACTILE STIMULI. WITHDRAWS FROM STIMULI.. 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 PT ON LEVOPHED GTT 2 MCG/MIN. GTT'S RUNNING INTO R. IJ TLC WITH CDI DRESSING. ALL PORTS PATENT. NGT TO R. NARE CLAMPED. PLACEMENT VERIFIED. SML AMOUNT OF BRUISING OBSERVED TO PT'S R. EYE. IRENE TO GRAVITY DRAINING SHAHID URINE WITH SEDIMENT. OPTIFOAM GENTLE SACRAL DRESSING IN PLACE OVER INTACT SKIN. PILLOWS USED TO OFFLOAD BONY PROMINENCES AND COREEN LOWER EXTREMITIES. BED IN LOWEST LOCKED POSITION. SIDE RAILS UP X 3. HOB ELEVATED 30 DEGREES. ALARMS ON AND AUDIBLE. PT IN FULL VIEW OF RN STATION. WILL CONTINUE TO MONITOR.
[2020-02-27] MEDS: NOREPINEPHRINE 8 MG/250ML KIT 250 ML IV SCH (20:30)
--- NOTE | 2020-02-27 20:40 | NUR ---
GI/HYGIENE PT HAD MOD SIZED BLACK TARRY LOOSE STOOL. PT CLEANSED. NEW LINENS PROVIDED.
[2020-02-27] MEDS: PANTOPRAZOLE 40 MG/10 ML VIAL INJ IV SCH (22:00)
[2020-02-28] VITALS (94 sets, daily range): BP systolic 82–144; BP diastolic 41–81
[2020-02-28] MEDS: ACCU-CHEK COMFORT CURVE STRIP VI SCH ×4 (00:14→17:34)
[2020-02-28] MEDS: InsuLIN REG 1unit/0.01ml Soln (100units/ml) SC SCH ×4 (00:16→17:36)
[2020-02-28] MEDS: MIDAZOLAM DRIP 50 mg/50mL 50 ML IV SCH ×5 (02:30→22:10)
[2020-02-28] MEDS: PROPOFOL 100 ML IV SCH ×3 (03:00→22:52)
--- NOTE | 2020-02-28 03:30 | NUR ---
Patient bathe/linen change Patient given complete bath. Skin integrity assessed for any changes. Linens changed. Patient repositioned for comfort. HAIR CARE PROVIDED.
[2020-02-28 05:11] LABS: Basophils # (auto) 0 10 ^3/uL (0-0.2); Basophils % (auto) 0.1 % (0.0-2.0); Eosinophils # (auto) 0 10 ^3/uL (0-0.8); Hematocrit 41.4 % (36.0-46.0); Hemoglobin 13.3 g/dL (12.2-16.2); Lymphocytes # (auto) 0.6 10 ^3/uL (0.4-5.4); Lymphocytes % (auto) 4.6 % (10.0-50.0); Mean Corpuscular Hemoglobin 29.5 pg (28.0-32.0); Mean Corpuscular Hgb Conc. 32.1 g/dL (32.0-36.0); Monocytes # (auto) 0.7 10 ^3/uL (0-1.3); Monocytes % (auto) 5.1 % (0.0-12.0); Neutrophils # (auto) 12.4 10 ^3/uL (1.6-8.6); Neutrophils % (auto) 90.2 % (37.0-80.0); Nucleated Red Blood Cells % 0.3 %; Platelet Count (auto) 172 10^3/uL (140-450); Red Cell Distribution Width 17.1 % (11.8-14.3); White Blood Cell 13.8 10^3/uL (4.4-10.8)
[2020-02-28 05:23] LABS: Albumin 2.1 g/dL (3.4-5.0); Calcium 8.5 mg/dL (8.5-10.1); Potassium 3.9 mmol/L (3.5-5.1)
[2020-02-28 05:24] LABS: INR 0.96 (0.9-1.15); Partial Thromboplastin Time 28.4 sec (23.0-31.2)
[2020-02-28 05:26] LABS: BUN/Creatinine Ratio 62.5
[2020-02-28 05:33] LABS: Bilirubin, Total 0.5 mg/dL (0.2-1.0); Total Protein 5.6 g/dL (6.4-8.2)
[2020-02-28] MEDS: ALBUTEROL SULF 2.5 MG/0.5ML(0.5%) NEB SOLN NEB SCH ×3 (06:18→18:01)
[2020-02-28] MEDS: BUDESONIDE (INHALATION) 0.5 MG/2 ML NEB NEB SCH ×2 (06:18→18:01)
--- NOTE | 2020-02-28 08:00 | NUR ---
ALL GTTS VERIFIED. VSS. PT AFEBRILE, VSS. PT REMAINS ON COVID 19 ISOLATION, PT 1ST SEEN FROM OUT SIDE GLASS WINDOW. WILL ASSESS ONCE OTHER PT PERMITS. ALL IV PUMPS OUTSIDE PT'S ROOM WITH LONG EXTENSION TUBING FOR EASY ACCESS.
[2020-02-28] MEDS: AMIODARONE 450mg/250ml AE 250 ML IV SCH (09:00)
--- NOTE | 2020-02-28 09:30 | NUR ---
AM ASSESSMENT COMPLETED PT REMAINS INTUBATED/ SEDATED ON PROPOFOL AT 20 SHANICE/KG/MIN, VERSED AT 15 MG/HR. PT ON 2 SHANICE/MIN OF LEVOPHED FOR BP. SUPPORT, BP HANGING IN THE LOW 100'S /50'S-60'S PT ON CONTROLLED AFIB IN THE 50'S- 60'S. OGT HAD 50 ML OF DARK BLACK RESIDUAL, NO BRIGHT BLOOD NOTED ON OGT OR PT'S MEDIUM BM WAS LOSE GREEN BM, ABDOMEN IS SOFT , NON DISTENDED WITH + BOWEL SOUNDS, TUBE FEEDINGS ARE BEEN HELD AT THIS TIME. FC IS DRAINING DARK SHAHID URINE NO HEMATURIA. PT'S SKIN INTACT OTHER THAN A BRUISE ON PT'S RT EYE. ORAL CARE PROVIDED AND REPOSITIONED FOR COMFORT.
[2020-02-28] MEDS ORDERED: FUROSEMIDE 20 MG/2 ML VIAL IV SCH (10:00)
[2020-02-28] MEDS: ENOXAPARIN SOD 60 MG/0.6 ML SYRINGE SC SCH (10:30)
[2020-02-28] MEDS: PANTOPRAZOLE 40 MG/10 ML VIAL INJ IV SCH ×2 (10:30→21:53)
[2020-02-28] MEDS: DexAMETHasone SOD PHOS 10MG/1ML VIAL INJ IV SCH (10:31)
[2020-02-28] MEDS: CHOLECALCIFEROL (VITD3) 2,000 UNIT CAP PO SCH (10:31)
[2020-02-28] MEDS: ASCORBIC ACID 1,000 MG TAB PO SCH (10:32)
[2020-02-28] MEDS: ZINC SULFATE 220mg CAP or TAB PO SCH (10:32)
--- NOTE | 2020-02-28 10:35 | NUR ---
Nutrition Followup Notes Wt: 69.3 kg Pt is positive for COVID, in ICU. Pt is intubated and sedated with propofol at 7.59 ml/hr providing 200 kcal from lipids. pt is off EN support due to high residuals per RN Est Energy needs: 8524-2986 kcals (20-23 kcal/kgBW), Est Protein needs: 63-69 gms/day (1.0-1.1 gm/kgBW). Will continue to monitor and reassess prn. LABS: BUN 80H, Creat 1.28H, Alb 2.1L, GLUC 168H, GI: Pt had no BM recorded but has diarr per RN doc. BS: 13 mod risk. Refer to wound assessment report for further details. PES: 1) Altered nutrition related lab values r/t current/chronic medical condition aeb elev RFTs, hyperglycemia, elev A1c, hypoalbuminemia 2) Food and nutrition knowledge deficit r/t pt dietary non-compliance aeb elev A1c, hyperglycemia Comments Will continue to monitor NPO status, skin status, pertinent labs and weight trends. Will f/u in 2-3 days 1) consider Glucerna 1.2 @ 50 ml/hr goal rate as tolerated and per MD approval. 2) Refer pt to a RD/CDE upon D/C 3) Continue current plan of care
[2020-02-28] MEDS ORDERED: SODIUM CHLORIDE 0.9% 1,000 ML IV ONE (13:45)
[2020-02-28] MEDS: PHENYLEPHRINE INJ 40 MG in SODIUM CHL 0.9% 250 ML IV SCH (14:25)
--- NOTE | 2020-02-28 16:40 | NUR ---
BM ELIMINATION PT HAD A SMALL BLACK TARRY BM, PARTIAL BATH GIVEN, SKIN BARRIER APPLIED AND REPOSITIONED FOR COMFORT. ORAL CARE PERFORMED PER VAP PROTOCOL.
[2020-02-29] VITALS (86 sets, daily range): BP systolic 79–188; BP diastolic 43–92
[2020-02-29] MEDS: MIDAZOLAM DRIP 50 mg/50mL 50 ML IV SCH ×4 (02:26→21:05)
[2020-02-29 04:12] LABS: BUN/Creatinine Ratio 69.3; Potassium 4.2 mmol/L (3.5-5.1)
[2020-02-29] MEDS: InsuLIN REG 1unit/0.01ml Soln (100units/ml) SC SCH ×5 (05:34→23:41)
[2020-02-29] MEDS: ACCU-CHEK COMFORT CURVE STRIP VI SCH ×5 (05:34→23:41)
[2020-02-29] MEDS: ALBUTEROL SULF 2.5 MG/0.5ML(0.5%) NEB SOLN NEB SCH ×3 (06:00→21:22)
[2020-02-29] MEDS: PROPOFOL 100 ML IV SCH (06:19)
[2020-02-29] MEDS: PHENYLEPHRINE INJ 40 MG in SODIUM CHL 0.9% 250 ML IV SCH ×2 (07:05→21:05)
--- NOTE | 2020-02-29 08:00 | NUR ---
AM ASSESSMENT COMPLETED REMAINS INTUBATED/ SEDATED ON COVID 19 ISOLATION. REMAINS ON LEVOPHED AT 3 SHANICE/MIN FOR BP SUPPORT, PT VERY SENSITIVE TO ANY TITRATION OFF LEVOPHED. WILL START TITRATING SEDATION SLOWLY. ORAL CARE RENDERED. NO TARRY STOOL THIS AM. REPOSITIONED FOR COMFORT.
--- NOTE | 2020-02-29 08:50 | NUR ---
DR. KEY ROUNDING ON PT. HE WANT TO DECREASE SEDATION AND DECREASE FIO2 ON PT TO SEE IF PT CAN BE WEANED OFF VENTILATOR. I NOTIFIED RT TETO, SHE'LL COME ONCE THEY ARE DONE WITH THEIR MEETING.
--- NOTE | 2020-02-29 10:12 | NUR ---
Respiratory note: TITRATED PT'S FIO2 TO 30%. PT TOLERATING WELL. WILL CONTINUE TO MONITOR PT. RN AWARE OF CHANGES.
[2020-02-29] MEDS: BUDESONIDE (INHALATION) 0.5 MG/2 ML NEB NEB SCH ×2 (10:13→21:22)
[2020-02-29] MEDS: PANTOPRAZOLE 40 MG/10 ML VIAL INJ IV SCH ×2 (10:36→18:37)
[2020-02-29] MEDS: ENOXAPARIN SOD 60 MG/0.6 ML SYRINGE SC SCH (10:37)
[2020-02-29] MEDS: CHOLECALCIFEROL (VITD3) 2,000 UNIT CAP PO SCH (10:37)
[2020-02-29] MEDS: DexAMETHasone SOD PHOS 10MG/1ML VIAL INJ IV SCH (10:37)
[2020-02-29] MEDS: ZINC SULFATE 220mg CAP or TAB PO SCH (10:38)
[2020-02-29] MEDS: ASCORBIC ACID 1,000 MG TAB PO SCH (10:38)
[2020-02-29] MEDS: NOREPINEPHRINE 8 MG/250ML KIT 250 ML IV SCH (10:39)
[2020-02-29] MEDS: AMIODARONE 450mg/250ml AE 250 ML IV SCH ×2 (15:00)
--- NOTE | 2020-02-29 19:00 | NUR ---
CLOSING. PT OF PROPOFOL, PT NOW JUST ON VERSED AT 10 MG/HR, STILL UNABLE TO TITRATE OFF LEVOPHED, BP DROP DOWN TO THE 80'S WHEN LEVOPHED WAS TITRATED DOWN. PT COULD BENEFIT FROM IVF FOR BP. AND UOP. OUP DROPPED TO 400 FROM WHEN PT WAS RECEIVING IVF AT 75 ML/HR. BUN & CR ALSO IMPROVED .
[2020-03-01] VITALS (89 sets, daily range): BP systolic 70–172; BP diastolic 43–109
[2020-03-01] MEDS: MIDAZOLAM DRIP 50 mg/50mL 50 ML IV SCH ×3 (01:58→08:23)
--- NOTE | 2020-03-01 02:04 | NUR ---
FIO2 INCREASED TO 40%
[2020-03-01] MEDS: AMIODARONE 450mg/250ml AE 250 ML IV SCH ×2 (05:15→20:51)
[2020-03-01] MEDS: NOREPINEPHRINE 8 MG/250ML KIT 250 ML IV SCH (05:16)
[2020-03-01] MEDS: ACCU-CHEK COMFORT CURVE STRIP VI SCH ×3 (06:03→17:32)
[2020-03-01] MEDS: InsuLIN REG 1unit/0.01ml Soln (100units/ml) SC SCH ×3 (06:04→17:34)
[2020-03-01] MEDS: ALBUTEROL SULF 2.5 MG/0.5ML(0.5%) NEB SOLN NEB SCH ×3 (06:11→20:56)
[2020-03-01] MEDS: DexAMETHasone SOD PHOS 10MG/1ML VIAL INJ IV SCH (09:45)
[2020-03-01] MEDS: ZINC SULFATE 220mg CAP or TAB PO SCH (09:45)
[2020-03-01] MEDS: CHOLECALCIFEROL (VITD3) 2,000 UNIT CAP PO SCH (09:45)
[2020-03-01] MEDS: PANTOPRAZOLE 40 MG/10 ML VIAL INJ IV SCH ×2 (09:45→21:40)
[2020-03-01] MEDS: ENOXAPARIN SOD 60 MG/0.6 ML SYRINGE SC SCH (09:45)
[2020-03-01] MEDS: ASCORBIC ACID 1,000 MG TAB PO SCH (09:45)
[2020-03-01] MEDS: BUDESONIDE (INHALATION) 0.5 MG/2 ML NEB NEB SCH ×2 (10:00→20:56)
--- NOTE | 2020-03-01 10:32 | NUR ---
Nutrition Followup Notes Wt: 69.3 kg Pt is positive for COVID, in ICU. Pt is intubated and off propofol. pt is currently NPO with EN support on hold. Est Energy needs: 7709-4042 kcals (20-23 kcal/kgBW), Est Protein needs: 63-69 gms/day (1.0-1.1 gm/kgBW). Will continue to monitor and reassess prn. LABS: GLU 191 H GI: Pt had no BM recorded but has diarr per RN doc. BS: 13 mod risk. Refer to wound assessment report for further details. PES: 1) Altered nutrition related lab values r/t current/chronic medical condition aeb elev RFTs, hyperglycemia, elev A1c, hypoalbuminemia 2) Food and nutrition knowledge deficit r/t pt dietary non-compliance aeb elev A1c, hyperglycemia Comments Will continue to monitor NPO status, skin status, pertinent labs and weight trends. Will f/u in 2-3 days 1) consider Glucerna 1.2 @ 50 ml/hr goal rate as tolerated and per MD approval. 2) Refer pt to a RD/CDE upon D/C 3) Continue current plan of care
--- NOTE | 2020-03-01 11:20 | NUR ---
WOUND CARE NOTE: WOUND CARE IN TOS EE PATIENT FOR REEVALUATION. PATIENT ON ICU LOW AIR-LOSS BED IN ROOM 101A. PATIENT IS POSITIVE FOR COVID-19. PATIENT IS SEDATED, INTUBATED AND MECHANICALLY VENTILATED. BEDSIDE NURSE ADVISES THAT PATIENT REMAINS WOUND FREE. RECOMMEND: CONTINUE WITH CONTINUE WITH PREVIOUSLY ORDERED WOUND CARE INTERVENTIONS PRESCRIBED BY PHYSICIAN. CONTINUED MONITORING BY WOUND CARE TEAM.
--- NOTE | 2020-03-01 12:30 | NUR ---
DRESSING CHANGE: Central line dressing changed.
[2020-03-01] MEDS: PROPOFOL 100 ML IV SCH (13:30)
--- NOTE | 2020-03-01 15:58 | NUR ---
CALL FROM [facility]; Spoke with primary care sales representative from [employer], updated her that patient is in stable condition.
--- NOTE | 2020-03-01 16:24 | NUR ---
AT BEDSIDE; Dr. Sal at bedside, orders received to perform CPAP trial when patient is awake. Patient currently off of sedation, does not follow commands at this time.
[2020-03-01] MEDS: PHENYLEPHRINE INJ 40 MG in SODIUM CHL 0.9% 250 ML IV SCH (16:25)
--- NOTE | 2020-03-01 19:00 | NUR ---
REPORT RECEIVED REPORT FROM NURSE MENDOZA TO RESUME CARE OF PATIENT.
[2020-03-02] VITALS (53 sets, daily range): BP systolic 48–152; BP diastolic 18–128
--- NOTE | 2020-03-02 | NUR ---
CODE SUCTIONED PATIENT REPOSITIONED HIGH IN BED WITH HOB ABOVE 30 DEGREES. PATIENT VENTILATOR ALARMING HIGH PRESSURE PAGED RT TO REEVALUATE PATIENT. CURRENT SETTING AC-22 TV 425 FIO2 40% PEEP 8. @2330 RT AT BEDSIDE INFORMED ME PATIENT NEEDS TO BE STARTED ON SEDATION, PATIENT TACHYPNEIC @ 30S DUE TO SUCTIONING UNTIL RESPIRATION IS BETTER. RT ATTEMPT TO BAG PATIENT AND STATES SHE HAVE DIFFICULTY. PATIENT HR WENT BRADYCARDIA IN THE 30S AND SBP 40S AND RECHECKED AND UNABLE OBTAIN BP. RT STATES PATIENT UNABLE TO MAKE RESPIRATION ON HER OWN NOT BREATHING, RT STOPPED RESPIRATION WITH BAG AND NO RAISE OR FALL IN PATIENT CHEST. CHECKED PULSES AND CAROTIDS NO PULSES PALPABLE. CODE BUTTON INITIATED, COMPRESSIONS STARTED. 1 DOSE EPINEPHRINE GIVEN @ 2350 FOLLOWED BY 1 AMP BICARB. #[id number] Addendum: 03/02/20 at 0339 by EFRA BRICEÑO RN RN 2ND DOSE EPINEPHRINE ADMINSITERED @2355. PATIENT STILL AFIB ON MONITOR 110S-130S. PULSES PRESENT VIA DOPPLER. INCREASED LEVOPHED TO 30MCG/MIN. HOSPITALIST BLANCA AT BEDSIDE RECEIVED ORDER TO START DOPAMINE GTT PER PROTOCOL.
[2020-03-02] MEDS: DOPamine 1600MCG/ML D5W 250 ML IV SCH ×3 (00:39→13:20)
[2020-03-02] MEDS: PHENYLEPHRINE INJ 40 MG in SODIUM CHL 0.9% 250 ML IV SCH ×3 (01:00→13:20)
[2020-03-02] MEDS: NOREPINEPHRINE 8 MG/250ML KIT 250 ML IV SCH ×3 (01:45→11:58)
--- NOTE | 2020-03-02 02:00 | NUR ---
SOURCING CONSULTANT WAS UNABLE TO OBTAIN LABS
--- NOTE | 2020-03-02 05:00 | NUR ---
SALES PRODUCT MANAGER WAS UNSUCCESSFUL IN OBTAINING AM LABS
--- NOTE | 2020-03-02 05:25 | NUR ---
UPDATED FAMILY PATIENT DECLINING STARTED PATIENT ON DOPAMINE AND MAXED. SPOKE WITH FAMILY SON REHAN INFORMED HIM PATIENT HAD CODED AT MIDNIGHT WAS REVIVED AND PLACED BACK ON CARDIAC GTT. SON REHAN STATES HE WANTS TO KEEP PATIENT FULL CODE.
[2020-03-02] MEDS: ACCU-CHEK COMFORT CURVE STRIP VI SCH ×3 (05:42→12:00)
[2020-03-02] MEDS: InsuLIN REG 1unit/0.01ml Soln (100units/ml) SC SCH ×3 (05:42→12:00)
[2020-03-02] MEDS ORDERED: PHENYLEPHRINE IV 250 ML IV ONE ×3 (06:00→13:14)
[2020-03-02] MEDS ORDERED: PHENYLEPHRINE HCL 10 MG/ML VL ONE (06:00)
--- NOTE | 2020-03-02 06:00 | NUR ---
[facility] HOSPITALIST PATIENT HYPOTENSIVE AND QRS IS WIDENING Addendum: 03/02/20 at 0657 by EFRA BRICEÑO RN RN REPAGED HOSPITALIST REGARDING PATIENT HR 40-50S AND PATIENT HYPOTENSIVE AND ALREADY ON MAXED DOPAMINE, LEVOPHED, NEOSYNEPHRINE.
[2020-03-02] MEDS: ALBUTEROL SULF 2.5 MG/0.5ML(0.5%) NEB SOLN NEB SCH ×2 (07:10→15:11)
--- NOTE | 2020-03-02 07:10 | NUR ---
LARGE PNEUMOTHORAX PAGED DR PANTOJA LEFT VOICE MAIL REGARDING CXR RESULTS. AWAITING CALL BACK. Addendum: 03/02/20 at 0800 by EFRA BRICEÑO RN RN REPORTED RESULTS TO [facility] DURING CODE OF LARGE PNEUMOTHORAX AND SQ EMPHYSEMA. INFORMED WILL HAVE DR DORADO INSERT A CHEST TUBE.
--- NOTE | 2020-03-02 07:11 | NUR ---
CODE BLUE; Noted wide complex rhythm on bedside monitor, entered room to assess patient for presence of pulse, no pulse present. Nico new called.
--- NOTE | 2020-03-02 07:40 | NUR ---
ER MD AT BEDSIDE; ER physician Dr. Gautam at bedside for emergency chest tube insertion to left chest.
[2020-03-02] MEDS ORDERED: VASOPRESSIN 50 UNITS in D5W 5% 247.5 ML IV SCH (08:15)
--- NOTE | 2020-03-02 08:20 | NUR ---
X-RAY; Radiology at bedside for post chest tube insertion chest X-ray.
--- NOTE | 2020-03-02 08:45 | NUR ---
ELIMINATION; Patient incontinent of stool. Large black/green stool, skin care and partial linen change provided.
--- NOTE | 2020-03-02 09:00 | NUR ---
SEDATION: Patient currently off of all sedation. Addendum: 03/02/20 at 1057 by Clint Ivory RN Amended: Links added.
[2020-03-02] MEDS: DexAMETHasone SOD PHOS 10MG/1ML VIAL INJ IV SCH (10:00)
[2020-03-02] MEDS: ZINC SULFATE 220mg CAP or TAB PO SCH (10:00)
[2020-03-02] MEDS: ASCORBIC ACID 1,000 MG TAB PO SCH (10:00)
[2020-03-02] MEDS: CHOLECALCIFEROL (VITD3) 2,000 UNIT CAP PO SCH (10:00)
[2020-03-02] MEDS: ENOXAPARIN SOD 60 MG/0.6 ML SYRINGE SC SCH (10:00)
[2020-03-02] MEDS: PANTOPRAZOLE 40 MG/10 ML VIAL INJ IV SCH (10:00)
--- NOTE | 2020-03-02 10:10 | NUR ---
FAMILY; Patient's son at bedside, updated on patient condition. Informed him of development of pneumothorax overnight, as well as subsequent episodes of cardiac arrest. Also discussed with him the emergency insertion of the left sided chest tube to resolve the pneumothorax. Discussed with him the possibility of poor oxygenation to the brain due the code blue events. Also informed him that Dr. Humphrey has been paged and is to come to speak with him further regarding the condition of his mother.
[2020-03-02 10:36] LABS: Hemoglobin 10.7 g/dL (12.2-16.2); Red Cell Distribution Width 19.5 % (11.8-14.3)
[2020-03-02 10:38] LABS: Hematocrit 38.5 % (36.0-46.0); Mean Corpuscular Hemoglobin 29.6 pg (28.0-32.0); Mean Corpuscular Hgb Conc. 27.9 g/dL (32.0-36.0); Platelet Count (auto) 96 10^3/uL (140-450); Red Blood Cells 3.63 10^6/uL (4.0-5.20); White Blood Cell 24.6 10^3/uL (4.4-10.8)
--- NOTE | 2020-03-02 10:44 | NUR ---
FAMILY TO PHYSICAL BEDSIDE; Family provided with appropriate PPE to enter room for visitation with mother due to very critical/unstable condition. At this time family is hesitant to agree to DNR as discussed with Dr. Humphrey. Discussed patient's overall condition with them, also enforced that whatever their wishes are is what will be carried out. Informed them that if they are not comfortable at this time with decision to make patient a DNR that does not have to be done, family is to further discuss patient condition with each other and determine how they would like to proceed.
[2020-03-02 10:55] LABS: Albumin 1.2 g/dL (3.4-5.0); Calcium 7.6 mg/dL (8.5-10.1)
[2020-03-02 10:56] LABS: Magnesium 3.5 mg/dL (1.6-2.6)
[2020-03-02 11:17] LABS: Total Protein 4.6 g/dL (6.4-8.2)
[2020-03-02 11:28] LABS: BUN/Creatinine Ratio 37.4
[2020-03-02 11:29] LABS: Potassium 8.2 mmol/L (3.5-5.1)
[2020-03-02 11:31] LABS: Basophils % (manual) 0 (0.0-2.0); Blast Cells 0; Eosinophils % (manual) 0 (0-7); Reactive Lymphocytes 0
--- NOTE | 2020-03-02 11:41 | NUR ---
CRITICAL LAB: Dr. Humphrey paged for critical lab value K of 8.2. Await return call.
[2020-03-02 11:49] LABS: Band Neutrophils % (manual) 9; Lymphocytes % (manual) 7 (10.0-50.0); Metamyelocytes % 7; Monocytes % (manual) 5 (0-12); Myelocytes % 5; Promyelocytes % 1
[2020-03-02] MEDS ORDERED: SODIUM ZIRCONIUM CYCL 10 GM PAK ONE (11:54)
--- NOTE | 2020-03-02 11:55 | NUR ---
RETURNED CALL; returned call regarding critical lab, orders received.
[2020-03-02] MEDS ORDERED: ALBUTEROL SULF 2.5 MG/0.5ML(0.5%) NEB SOLN NEB ONE ×3 (12:00→14:00)
[2020-03-02] MEDS ORDERED: SODIUM ZIRCONIUM CYCL 10 GM PAK PO ONE (12:00)
[2020-03-02] MEDS: AMIODARONE 450mg/250ml AE 250 ML IV SCH (12:00)
[2020-03-02] MEDS: BUDESONIDE (INHALATION) 0.5 MG/2 ML NEB NEB SCH (12:01)
[2020-03-02] MEDS ORDERED: EPINEPHrine HCL 1 MG/10 ML SYRG IV ONE ×2 (12:34→15:29)
[2020-03-02] MEDS ORDERED: SODIUM BICARBONATE 8.4% INJ 50ML SYRINGE IV ONE (12:34)
[2020-03-02] MEDS ORDERED: ATROPINE SULF 1 MG/10ml SYR IV ONE ×2 (12:34→15:29)
--- NOTE | 2020-03-02 12:36 | NUR ---
CODE BLUE; Pulses lost, patient wide complex PEA on monitor. Code blue called.
[2020-03-02] MEDS ORDERED: SODIUM BICARBONATE 8.4% INJ 50ML SYRINGE ONE ×2 (12:38→12:41)
[2020-03-02] MEDS: MIDAZOLAM DRIP 50 mg/50mL 50 ML IV SCH (13:30)
[2020-03-02] MEDS: PROPOFOL 100 ML IV SCH (13:30)
--- NOTE | 2020-03-02 15:05 | NUR ---
FAMILY: Call placed to patient's son Jey to inform him of patient passing, no answer. Message left requesting return call.
--- NOTE | 2020-03-02 15:08 | NUR ---
ONE [facility]Y; Patient not candidate for donation. Referal number [phone].
[2020-03-02] MEDS ORDERED: CALCIUM CHLOR(10%) 100MG/ML 10ML SYRINGE IV ONE (15:29)
--- NOTE | 2020-03-02 15:47 | NUR ---
G[employer] ASS[employer]ER; Initial call to tube puller, patient demographics provided. Await return call from [place].
== END 2020-03-02 15:30 | disposition expired | DRG 130 ==
LOC: ER 10:55 → TELE 10:56 → ICU WEST 02-23 16:30
PROVIDERS: ADMIT Nurse Practitioner Acute Care; ATTEND Internal Medicine
PROC: XW033E5 Introduction of Remdesivir Anti-infective into Peripheral Vein, Percutaneous Approach, New Technology Group 5 (ICD-10-PCS; 2020-02-18)
PROC: XW13325 Transfusion of Convalescent Plasma (Nonautologous) into Peripheral Vein, Percutaneous Approach, New Technology Group 5 (ICD-10-PCS; 2020-02-18)
PROC: 5A09357 Assistance with Respiratory Ventilation, Less than 24 Consecutive Hours, Continuous Positive Airway Pressure (ICD-10-PCS; 2020-02-21)
PROC: 5A1955Z Respiratory Ventilation, Greater than 96 Consecutive Hours (ICD-10-PCS; principal; 2020-02-23)
PROC: 0BH17EZ Insertion of Endotracheal Airway into Trachea, Via Natural or Artificial Opening (ICD-10-PCS; 2020-02-23)
PROC: 02HV33Z Insertion of Infusion Device into Superior Vena Cava, Percutaneous Approach (ICD-10-PCS; 2020-02-23)
PROC: 5A12012 Performance of Cardiac Output, Single, Manual (ICD-10-PCS; 2020-03-02)
PROC: 0W9B30Z Drainage of Left Pleural Cavity with Drainage Device, Percutaneous Approach (ICD-10-PCS; 2020-03-02)
DX: U07.1 COVID-19 (principal); J12.89 Other viral pneumonia; N17.0 Acute kidney failure with tubular necrosis; J80 Acute respiratory distress syndrome; M06.9 Rheumatoid arthritis, unspecified; E87.1 Hypo-osmolality and hyponatremia; K76.7 Hepatorenal syndrome; Z66 Do not resuscitate; E11.9 Type 2 diabetes mellitus without complications; D68.59 Other primary thrombophilia; J98.11 Atelectasis; I10 Essential (primary) hypertension; E87.0 Hyperosmolality and hypernatremia; J93.9 Pneumothorax, unspecified; J98.2 Interstitial emphysema; I47.1 Supraventricular tachycardia; E87.2 Acidosis; E78.5 Hyperlipidemia, unspecified; I25.10 Atherosclerotic heart disease of native coronary artery without angina pectoris; Z79.4 Long term (current) use of insulin; Z82.49 Family history of ischemic heart disease and other diseases of the circulatory system; Z83.3 Family history of diabetes mellitus; Z95.1 Presence of aortocoronary bypass graft; Z95.2 Presence of prosthetic heart valve; J91.8 Pleural effusion in other conditions classified elsewhere; E86.0 Dehydration
CPT/HCPCS: 36415; 36600; 71045; 80048; 80053; 81001; 82550; 82728; 82805; 82962; 83036; 83605; 83615; 83735; 83880; 84484; 85007; 85025; 85027; 85379; 85610; 85730; 86141; 86850; 86900; 86901; 87040; 87081; 87426; 87804; 93005; 93970; 94002; 94003; 94640; 94660; 96365; 96372; 96375; 99291; C9113; G0378; J0330; J1100; J1815; J2250; J2704; J3480; J3490; J7060